=== PATIENT | male | born 1965 | race Caucasian/White ===

== ENCOUNTER 2023-09-05 11:10 | Inpatient (IN) | payer MEDICARE, MEDICAID ==
[~2023-09-05] VITALS: Ht 167.6 cm; Wt 106.2 kg
[~2023-09-05 11:10] MED LIST: NYST15OI14 TP; [UNRECOGNIZED DRUG - REMARK]
[2023-09-05] MEDS ORDERED: mag hydrox/Alum hydrox/simeth 30ml oral suspension PO PRN (16:40)
[2023-09-05] MEDS ORDERED: loperamide 2mg capsule PO PRN (16:40)
[2023-09-05] MEDS ORDERED: acetaminophen 325mg tablet PO PRN ×2 (16:40)
[2023-09-05] MEDS ORDERED: magnesium hydroxide 30ml (MOM) UD suspension PO PRN (16:40)
[2023-09-05] MEDS ORDERED: METO25TA6 PO (17:09)
[2023-09-05] MEDS ORDERED: OLAN20TA3 PO (17:09)
[2023-09-05] MEDS ORDERED: ALOG25TA PO (17:09)
[2023-09-05] MEDS ORDERED: GABA-530 PO (17:09)
[2023-09-05 17:39] VITALS: BP 125/82; PULSE 120; RESP 16; TEMP 99; O2SAT 96
[2023-09-05 19:00] VITALS: BP 118/88; PULSE 108; RESP 18; TEMP 97.8; O2SAT 97
[2023-09-05] MEDS: metoprolol tartrate 25mg tablet PO SCH (20:27)
[2023-09-05] MEDS: olanzapine 10mg tablet PO SCH (20:27)
[2023-09-05] MEDS: gabapentin 100mg capsule PO SCH (20:28)
[2023-09-06 07:00] VITALS: RESP 18; O2SAT 99
[2023-09-06 08:00] VITALS: BP 116/72; PULSE 118; RESP 18; TEMP 98; O2SAT 99
[2023-09-06] MEDS: olanzapine 10mg tablet PO SCH ×2 (08:02→20:18)
[2023-09-06] MEDS: metoprolol tartrate 25mg tablet PO SCH ×2 (08:02→20:18)
[2023-09-06] MEDS: linagliptin 5mg tablet PO SCH (08:03)
[2023-09-06] MEDS: nicotine 14mg patch - 24hr TD SCH (08:03)
[2023-09-06] MEDS: gabapentin 100mg capsule PO SCH ×3 (08:03→20:18)
[2023-09-06] MEDS: ketoconazole 2% cream 15gm TP SCH (08:03)
[2023-09-06 13:31] LABS: CHOL/HDL RATIO 3.8 (0.00-4.99); CHOLESTEROL 173 MG/DL (0-200); HDL CHOLESTEROL 45 MG/DL (35-60); HEMOGLOBIN A1C 6.8 % (4.5-6.2); LDL CHOLESTEROL 111 MG/DL (50-100); TRIGLYCERIDES 158 MG/DL (20-135)
[2023-09-06 19:25] VITALS: RESP 16; O2SAT 98
[2023-09-06 19:27] VITALS: BP 108/67; PULSE 73; RESP 16; TEMP 98.6; O2SAT 98
[2023-09-06] MEDS ORDERED: gabapentin 100mg capsule PO SCH ×2 (21:00)
[2023-09-07 07:00] VITALS: RESP 14; O2SAT 96
[2023-09-07] MEDS: olanzapine 10mg tablet PO SCH ×2 (07:49→20:06)
[2023-09-07] MEDS: gabapentin 100mg capsule PO SCH ×3 (07:49→20:06)
[2023-09-07] MEDS: linagliptin 5mg tablet PO SCH (07:49)
[2023-09-07] MEDS: metoprolol tartrate 25mg tablet PO SCH ×2 (07:49→20:06)
[2023-09-07] MEDS: atorvastatin 20mg tablet PO SCH (07:49)
[2023-09-07] MEDS: ketoconazole 2% cream 15gm TP SCH (07:50)
[2023-09-07] MEDS: nicotine 14mg patch - 24hr TD SCH (07:50)
[2023-09-07 08:00] VITALS: BP 118/77; PULSE 72; RESP 14; TEMP 98; O2SAT 96
[2023-09-07 19:00] VITALS: BP 122/72; PULSE 99; RESP 16; TEMP 97.3; O2SAT 100
[2023-09-08 07:00] VITALS: RESP 16; O2SAT 99
[2023-09-08] MEDS: nicotine 14mg patch - 24hr TD SCH (07:15)
[2023-09-08] MEDS: atorvastatin 20mg tablet PO SCH (07:15)
[2023-09-08] MEDS: linagliptin 5mg tablet PO SCH (07:15)
[2023-09-08] MEDS: gabapentin 100mg capsule PO SCH ×3 (07:15→20:12)
[2023-09-08] MEDS: olanzapine 10mg tablet PO SCH ×2 (07:15→20:12)
[2023-09-08] MEDS: ketoconazole 2% cream 15gm TP SCH (07:19)
[2023-09-08] MEDS: metoprolol tartrate 25mg tablet PO SCH ×2 (07:19→20:11)
[2023-09-08 07:57] VITALS: BP 112/78; PULSE 90; RESP 16; TEMP 98.4; O2SAT 99
[2023-09-08 19:29] VITALS: BP 120/70; PULSE 69; RESP 16; TEMP 97.9; O2SAT 100
[2023-09-08 19:47] VITALS: RESP 16; O2SAT 100
[2023-09-09 07:00] VITALS: RESP 16; O2SAT 100
[2023-09-09 08:00] VITALS: BP 111/48; PULSE 85; RESP 16; TEMP 98.7; O2SAT 100
[2023-09-09] MEDS: olanzapine 10mg tablet PO SCH ×2 (08:25→20:08)
[2023-09-09] MEDS: linagliptin 5mg tablet PO SCH (08:25)
[2023-09-09] MEDS: gabapentin 100mg capsule PO SCH ×3 (08:25→20:10)
[2023-09-09] MEDS: atorvastatin 20mg tablet PO SCH (08:25)
[2023-09-09] MEDS: metoprolol tartrate 25mg tablet PO SCH ×2 (08:26→20:09)
[2023-09-09] MEDS: ketoconazole 2% cream 15gm TP SCH (08:29)
[2023-09-09] MEDS: nicotine 14mg patch - 24hr TD SCH (08:29)
[2023-09-09 19:31] VITALS: BP 115/72; PULSE 106; RESP 16; TEMP 98.2; O2SAT 96
[2023-09-09 19:47] VITALS: RESP 16; O2SAT 100
[2023-09-10 07:00] VITALS: RESP 16; O2SAT 98
[2023-09-10] MEDS: linagliptin 5mg tablet PO SCH (08:23)
[2023-09-10] MEDS: atorvastatin 20mg tablet PO SCH (08:23)
[2023-09-10] MEDS: gabapentin 100mg capsule PO SCH ×3 (08:23→20:25)
[2023-09-10] MEDS: metoprolol tartrate 25mg tablet PO SCH ×2 (08:23→20:25)
[2023-09-10] MEDS: ketoconazole 2% cream 15gm TP SCH (08:24)
[2023-09-10] MEDS: nicotine 14mg patch - 24hr TD SCH (08:24)
[2023-09-10] MEDS: olanzapine 10mg tablet PO SCH (08:24)
[2023-09-10 08:30] VITALS: BP 126/78; PULSE 84; RESP 16; TEMP 98.2; O2SAT 98
[2023-09-10 19:30] VITALS: BP 112/70; PULSE 82; RESP 18; TEMP 98.1; O2SAT 97
[2023-09-11 07:00] VITALS: RESP 16; O2SAT 99
[2023-09-11 08:00] VITALS: BP 119/73; PULSE 81; RESP 16; TEMP 98.1; O2SAT 99
[2023-09-11] MEDS: aripiprazole 5mg tablet PO SCH (08:37)
[2023-09-11] MEDS: atorvastatin 20mg tablet PO SCH (08:37)
[2023-09-11] MEDS: gabapentin 100mg capsule PO SCH ×3 (08:38→20:15)
[2023-09-11] MEDS: metoprolol tartrate 25mg tablet PO SCH ×2 (08:38→20:16)
[2023-09-11] MEDS: OLANZAPINE 5 MG TABLET PO SCH ×2 (08:39→20:16)
[2023-09-11] MEDS: linagliptin 5mg tablet PO SCH (08:39)
[2023-09-11] MEDS: ketoconazole 2% cream 15gm TP SCH (08:40)
[2023-09-11] MEDS: nicotine 14mg patch - 24hr TD SCH (08:40)
[2023-09-11 19:00] VITALS: BP 147/89; PULSE 110; RESP 20; TEMP 97.8; O2SAT 96
[2023-09-12 07:00] VITALS: RESP 16; O2SAT 97
[2023-09-12] MEDS: linagliptin 5mg tablet PO SCH (07:37)
[2023-09-12] MEDS: atorvastatin 20mg tablet PO SCH (07:37)
[2023-09-12] MEDS: OLANZAPINE 5 MG TABLET PO SCH ×2 (07:37→20:09)
[2023-09-12] MEDS: aripiprazole 5mg tablet PO SCH (07:37)
[2023-09-12] MEDS: gabapentin 100mg capsule PO SCH ×3 (07:37→20:10)
[2023-09-12] MEDS: metoprolol tartrate 25mg tablet PO SCH ×2 (07:37→20:10)
[2023-09-12] MEDS: nicotine 14mg patch - 24hr TD SCH (07:38)
[2023-09-12 08:00] VITALS: BP 129/75; PULSE 93; RESP 16; TEMP 97.3; O2SAT 98
[2023-09-12] MEDS: ketoconazole 2% cream 15gm TP SCH (08:00)
[2023-09-12 19:00] VITALS: BP 147/81; PULSE 99; RESP 20; TEMP 97.5; O2SAT 97
[2023-09-13 07:00] VITALS: RESP 14; O2SAT 97
[2023-09-13] MEDS: nicotine 14mg patch - 24hr TD SCH (07:44)
[2023-09-13] MEDS: gabapentin 100mg capsule PO SCH ×3 (07:44→20:01)
[2023-09-13] MEDS: atorvastatin 20mg tablet PO SCH (07:44)
[2023-09-13] MEDS: aripiprazole 5mg tablet PO SCH (07:44)
[2023-09-13] MEDS: OLANZAPINE 5 MG TABLET PO SCH ×2 (07:44→20:01)
[2023-09-13] MEDS: linagliptin 5mg tablet PO SCH (07:44)
[2023-09-13] MEDS: metoprolol tartrate 25mg tablet PO SCH ×2 (07:45→20:01)
[2023-09-13 08:00] VITALS: BP 131/77; PULSE 83; RESP 14; TEMP 97.6; O2SAT 97
[2023-09-13] MEDS: ketoconazole 2% cream 15gm TP SCH (08:00)
[2023-09-13 19:00] VITALS: RESP 16; O2SAT 97
[2023-09-13 20:00] VITALS: BP 114/68; PULSE 94; RESP 16; TEMP 97.7; O2SAT 97
[2023-09-14 07:00] VITALS: RESP 16; O2SAT 98
[2023-09-14 08:02] VITALS: BP 120/75; PULSE 100; RESP 16; TEMP 97.4; O2SAT 98
[2023-09-14] MEDS: aripiprazole 5mg tablet PO SCH (08:02)
[2023-09-14] MEDS: olanzapine 10mg tablet PO SCH (08:03)
[2023-09-14] MEDS: metoprolol tartrate 25mg tablet PO SCH ×2 (08:03→20:00)
[2023-09-14] MEDS: linagliptin 5mg tablet PO SCH (08:03)
[2023-09-14] MEDS: gabapentin 100mg capsule PO SCH ×3 (08:03→20:47)
[2023-09-14] MEDS: atorvastatin 20mg tablet PO SCH (08:03)
[2023-09-14] MEDS: ketoconazole 2% cream 15gm TP SCH (08:06)
[2023-09-14] MEDS: nicotine 14mg patch - 24hr TD SCH (08:06)
[2023-09-14 19:00] VITALS: RESP 16; O2SAT 97
[2023-09-14 20:00] VITALS: BP 99/67; PULSE 99; RESP 16; TEMP 98.9; O2SAT 97
[2023-09-14] MEDS: OLANZAPINE 5 MG TABLET PO SCH (20:47)
[2023-09-15 07:00] VITALS: RESP 16; O2SAT 98
[2023-09-15] MEDS: linagliptin 5mg tablet PO SCH (07:24)
[2023-09-15] MEDS: olanzapine 10mg tablet PO SCH (07:25)
[2023-09-15] MEDS: aripiprazole 5mg tablet PO SCH (07:25)
[2023-09-15] MEDS: gabapentin 100mg capsule PO SCH ×3 (07:25→20:07)
[2023-09-15] MEDS: nicotine 14mg patch - 24hr TD SCH (07:25)
[2023-09-15] MEDS: atorvastatin 20mg tablet PO SCH (07:25)
[2023-09-15] MEDS: metoprolol tartrate 25mg tablet PO SCH ×2 (07:26→20:06)
[2023-09-15] MEDS: ketoconazole 2% cream 15gm TP SCH (07:27)
[2023-09-15 08:00] VITALS: BP 112/83; PULSE 100; RESP 16; TEMP 98.2; O2SAT 98
[2023-09-15 19:46] VITALS: RESP 16; O2SAT 96
[2023-09-15 19:48] VITALS: BP 106/70; PULSE 96; RESP 16; TEMP 98.1; O2SAT 96
[2023-09-15] MEDS: OLANZAPINE 5 MG TABLET PO SCH (20:05)
[2023-09-16 07:00] VITALS: RESP 16; O2SAT 97
[2023-09-16 08:00] VITALS: BP 112/74; PULSE 86; RESP 16; TEMP 97.5; O2SAT 97
[2023-09-16] MEDS: linagliptin 5mg tablet PO SCH (08:39)
[2023-09-16] MEDS: aripiprazole 5mg tablet PO SCH (08:39)
[2023-09-16] MEDS: olanzapine 10mg tablet PO SCH (08:39)
[2023-09-16] MEDS: nicotine 14mg patch - 24hr TD SCH (08:39)
[2023-09-16] MEDS: atorvastatin 20mg tablet PO SCH (08:39)
[2023-09-16] MEDS: metoprolol tartrate 25mg tablet PO SCH ×2 (08:40→21:09)
[2023-09-16] MEDS: ketoconazole 2% cream 15gm TP SCH (08:40)
[2023-09-16] MEDS: gabapentin 100mg capsule PO SCH ×3 (08:40→21:09)
[2023-09-16 20:00] VITALS: BP 113/74; PULSE 93; RESP 16; TEMP 98.6; O2SAT 97
[2023-09-16] MEDS: OLANZAPINE 5 MG TABLET PO SCH (21:09)
[2023-09-17] MEDS: atorvastatin 20mg tablet PO SCH (07:54)
[2023-09-17] MEDS: aripiprazole 5mg tablet PO SCH (07:54)
[2023-09-17] MEDS: linagliptin 5mg tablet PO SCH (07:55)
[2023-09-17] MEDS: gabapentin 100mg capsule PO SCH ×3 (07:55→20:22)
[2023-09-17] MEDS: olanzapine 10mg tablet PO SCH (07:55)
[2023-09-17] MEDS: metoprolol tartrate 25mg tablet PO SCH ×2 (07:55→20:22)
[2023-09-17] MEDS: nicotine 14mg patch - 24hr TD SCH (07:55)
[2023-09-17 08:00] VITALS: BP 111/73; PULSE 89; RESP 14; TEMP 97.6; O2SAT 98
[2023-09-17] MEDS: ketoconazole 2% cream 15gm TP SCH (08:30)
[2023-09-17 19:32] VITALS: BP 104/74; PULSE 96; RESP 16; TEMP 97.6; O2SAT 100
[2023-09-17] MEDS: OLANZAPINE 5 MG TABLET PO SCH (20:23)
[2023-09-18] MEDS: gabapentin 100mg capsule PO SCH ×3 (07:53→20:21)
[2023-09-18] MEDS: linagliptin 5mg tablet PO SCH (07:53)
[2023-09-18] MEDS: metoprolol tartrate 25mg tablet PO SCH ×2 (07:54→20:22)
[2023-09-18] MEDS: aripiprazole 5mg tablet PO SCH (07:54)
[2023-09-18] MEDS: olanzapine 10mg tablet PO SCH (07:55)
[2023-09-18] MEDS: atorvastatin 20mg tablet PO SCH (07:55)
[2023-09-18] MEDS: nicotine 14mg patch - 24hr TD SCH (07:55)
[2023-09-18 08:00] VITALS: BP 125/71; PULSE 95; RESP 18; TEMP 97; O2SAT 100
[2023-09-18] MEDS: ketoconazole 2% cream 15gm TP SCH (08:00)
[2023-09-18 19:30] VITALS: BP 134/83; PULSE 104; RESP 14; TEMP 97.4; O2SAT 99
[2023-09-18] MEDS: OLANZAPINE 5 MG TABLET PO SCH (20:22)
[2023-09-19] MEDS: nicotine 14mg patch - 24hr TD SCH (07:06)
[2023-09-19 08:00] VITALS: BP 141/78; PULSE 82; RESP 14; TEMP 97.9; O2SAT 98
[2023-09-19] MEDS: ketoconazole 2% cream 15gm TP SCH (08:00)
[2023-09-19] MEDS: aripiprazole 5mg tablet PO SCH (08:04)
[2023-09-19] MEDS: olanzapine 10mg tablet PO SCH (08:04)
[2023-09-19] MEDS: linagliptin 5mg tablet PO SCH (08:04)
[2023-09-19] MEDS: atorvastatin 20mg tablet PO SCH (08:04)
[2023-09-19] MEDS: metoprolol tartrate 25mg tablet PO SCH ×2 (08:05→20:14)
[2023-09-19] MEDS: gabapentin 100mg capsule PO SCH ×3 (08:05→20:14)
[2023-09-19 19:00] VITALS: BP 122/72; PULSE 91; RESP 17; TEMP 97.3; O2SAT 98
[2023-09-19] MEDS: OLANZAPINE 5 MG TABLET PO SCH (20:15)
[2023-09-20 07:00] VITALS: RESP 16; O2SAT 98
[2023-09-20 08:00] VITALS: BP 124/71; PULSE 90; RESP 16; TEMP 98.2; O2SAT 98
[2023-09-20] MEDS: gabapentin 100mg capsule PO SCH ×3 (08:00→20:11)
[2023-09-20] MEDS: atorvastatin 20mg tablet PO SCH (08:00)
[2023-09-20] MEDS: metoprolol tartrate 25mg tablet PO SCH ×2 (08:00→20:12)
[2023-09-20] MEDS: aripiprazole 5mg tablet PO SCH (08:00)
[2023-09-20] MEDS: ketoconazole 2% cream 15gm TP SCH (08:01)
[2023-09-20] MEDS: olanzapine 10mg tablet PO SCH (08:01)
[2023-09-20] MEDS: linagliptin 5mg tablet PO SCH (08:01)
[2023-09-20] MEDS: nicotine 14mg patch - 24hr TD SCH (08:04)
[2023-09-20 19:00] VITALS: RESP 17; O2SAT 97
[2023-09-20 19:10] VITALS: BP 123/76; PULSE 82; RESP 17; TEMP 96.7; O2SAT 97
[2023-09-20] MEDS: OLANZAPINE 5 MG TABLET PO SCH (20:11)
[2023-09-21 07:00] VITALS: RESP 14; O2SAT 96
[2023-09-21 08:00] VITALS: BP 105/66; PULSE 78; RESP 14; TEMP 97.7; O2SAT 96
[2023-09-21] MEDS: gabapentin 100mg capsule PO SCH ×3 (08:00→20:39)
[2023-09-21] MEDS: aripiprazole 5mg tablet PO SCH (08:00)
[2023-09-21] MEDS: nicotine 14mg patch - 24hr TD SCH (08:00)
[2023-09-21] MEDS: olanzapine 10mg tablet PO SCH (08:01)
[2023-09-21] MEDS: atorvastatin 20mg tablet PO SCH (08:01)
[2023-09-21] MEDS: linagliptin 5mg tablet PO SCH (08:01)
[2023-09-21] MEDS: metoprolol tartrate 25mg tablet PO SCH ×2 (08:02→20:39)
[2023-09-21] MEDS: ketoconazole 2% cream 15gm TP SCH (08:10)
[2023-09-21 19:44] VITALS: BP 111/76; PULSE 95; RESP 16; TEMP 97.3; O2SAT 97
[2023-09-21] MEDS: traZODone 50mg tablet PO PRN (20:39)
[2023-09-21] MEDS: OLANZAPINE 5 MG TABLET PO SCH (20:39)
[2023-09-22 07:00] VITALS: RESP 14; O2SAT 98
[2023-09-22] MEDS: aripiprazole 5mg tablet PO SCH (07:25)
[2023-09-22] MEDS: olanzapine 10mg tablet PO SCH (07:25)
[2023-09-22] MEDS: atorvastatin 20mg tablet PO SCH (07:25)
[2023-09-22] MEDS: metoprolol tartrate 25mg tablet PO SCH ×2 (07:25→20:21)
[2023-09-22] MEDS: gabapentin 100mg capsule PO SCH ×3 (07:25→20:21)
[2023-09-22] MEDS: linagliptin 5mg tablet PO SCH (07:25)
[2023-09-22] MEDS: nicotine 14mg patch - 24hr TD SCH (07:26)
[2023-09-22] MEDS: ketoconazole 2% cream 15gm TP SCH (07:26)
[2023-09-22 08:00] VITALS: BP 122/72; PULSE 80; RESP 14; TEMP 98.1; O2SAT 98
[2023-09-22 20:00] VITALS: BP 128/81; PULSE 97; RESP 15; TEMP 98.5; O2SAT 96
[2023-09-22] MEDS: OLANZAPINE 5 MG TABLET PO SCH (20:20)
[2023-09-23 07:00] VITALS: RESP 16; O2SAT 96
[2023-09-23] MEDS: atorvastatin 20mg tablet PO SCH (07:16)
[2023-09-23] MEDS: olanzapine 10mg tablet PO SCH (07:16)
[2023-09-23] MEDS: aripiprazole 5mg tablet PO SCH (07:16)
[2023-09-23] MEDS: linagliptin 5mg tablet PO SCH (07:17)
[2023-09-23] MEDS: metoprolol tartrate 25mg tablet PO SCH ×2 (07:17→20:28)
[2023-09-23] MEDS: gabapentin 100mg capsule PO SCH ×3 (07:17→20:27)
[2023-09-23] MEDS: ketoconazole 2% cream 15gm TP SCH (07:18)
[2023-09-23] MEDS: nicotine 14mg patch - 24hr TD SCH (07:35)
[2023-09-23 08:00] VITALS: BP 117/76; PULSE 60; RESP 16; TEMP 97; O2SAT 96
[2023-09-23] MEDS: LORazepam 1 MG tablet PO PRN (15:32)
[2023-09-23 19:53] VITALS: BP 132/74; PULSE 93; RESP 16; TEMP 97.7; O2SAT 96
[2023-09-23] MEDS: OLANZAPINE 5 MG TABLET PO SCH (20:27)
[2023-09-24 07:05] VITALS: RESP 16; O2SAT 96
[2023-09-24] MEDS: olanzapine 10mg tablet PO SCH (07:43)
[2023-09-24] MEDS: atorvastatin 20mg tablet PO SCH (07:43)
[2023-09-24] MEDS: aripiprazole 5mg tablet PO SCH (07:43)
[2023-09-24] MEDS: linagliptin 5mg tablet PO SCH (07:43)
[2023-09-24] MEDS: gabapentin 100mg capsule PO SCH ×3 (07:43→20:30)
[2023-09-24] MEDS: nicotine 14mg patch - 24hr TD SCH (07:44)
[2023-09-24] MEDS: metoprolol tartrate 25mg tablet PO SCH ×2 (07:44→20:30)
[2023-09-24 08:54] VITALS: BP 115/76; PULSE 75; RESP 12; TEMP 96.8; O2SAT 97
[2023-09-24] MEDS: ketoconazole 2% cream 15gm TP SCH (09:00)
[2023-09-24 19:30] VITALS: BP 114/66; PULSE 81; RESP 16; TEMP 98.3
[2023-09-24] MEDS: OLANZAPINE 5 MG TABLET PO SCH (20:31)
[2023-09-25 07:23] VITALS: RESP 16; O2SAT 96
[2023-09-25] MEDS: aripiprazole 5mg tablet PO SCH (07:41)
[2023-09-25] MEDS: linagliptin 5mg tablet PO SCH (07:41)
[2023-09-25] MEDS: atorvastatin 20mg tablet PO SCH (07:41)
[2023-09-25] MEDS: metoprolol tartrate 25mg tablet PO SCH ×2 (07:41→20:04)
[2023-09-25] MEDS: olanzapine 10mg tablet PO SCH (07:41)
[2023-09-25] MEDS: nicotine 14mg patch - 24hr TD SCH (07:42)
[2023-09-25] MEDS: ketoconazole 2% cream 15gm TP SCH (07:42)
[2023-09-25] MEDS: gabapentin 100mg capsule PO SCH ×3 (07:42→20:04)
[2023-09-25 08:00] VITALS: BP 131/78; PULSE 84; RESP 16; TEMP 98.4; O2SAT 98
[2023-09-25 19:09] VITALS: BP 110/78; PULSE 88; RESP 16; TEMP 97; O2SAT 94
[2023-09-25 19:39] VITALS: RESP 16; O2SAT 98
[2023-09-25] MEDS: OLANZAPINE 5 MG TABLET PO SCH (20:04)
[2023-09-26 07:26] VITALS: BP 129/77; PULSE 101; RESP 16; TEMP 98.6; O2SAT 99
[2023-09-26] MEDS: nicotine 14mg patch - 24hr TD SCH (08:00)
[2023-09-26] MEDS: gabapentin 100mg capsule PO SCH ×3 (08:05→20:39)
[2023-09-26] MEDS: linagliptin 5mg tablet PO SCH (08:05)
[2023-09-26] MEDS: atorvastatin 20mg tablet PO SCH (08:05)
[2023-09-26] MEDS: metoprolol tartrate 25mg tablet PO SCH ×2 (08:06→20:38)
[2023-09-26] MEDS: olanzapine 10mg tablet PO SCH (08:06)
[2023-09-26] MEDS: aripiprazole 5mg tablet PO SCH (08:06)
[2023-09-26] MEDS: ketoconazole 2% cream 15gm TP SCH (08:49)
[2023-09-26 19:19] VITALS: BP 99/72; PULSE 82; RESP 18; TEMP 97.9; O2SAT 97
[2023-09-26 20:37] VITALS: BP 126/70
[2023-09-26] MEDS: OLANZAPINE 5 MG TABLET PO SCH (20:39)
[2023-09-26] MEDS: traZODone 50mg tablet PO PRN (20:39)
[2023-09-27 07:00] VITALS: RESP 14; O2SAT 97
[2023-09-27 08:00] VITALS: BP 111/70; PULSE 79; RESP 14; TEMP 97.3; O2SAT 97
[2023-09-27] MEDS: nicotine 14mg patch - 24hr TD SCH (08:00)
[2023-09-27] MEDS: gabapentin 100mg capsule PO SCH ×3 (08:01→20:05)
[2023-09-27] MEDS: ketoconazole 2% cream 15gm TP SCH (08:01)
[2023-09-27] MEDS: olanzapine 10mg tablet PO SCH (08:01)
[2023-09-27] MEDS: metoprolol tartrate 25mg tablet PO SCH ×2 (08:01→20:06)
[2023-09-27] MEDS: atorvastatin 20mg tablet PO SCH (08:01)
[2023-09-27] MEDS: linagliptin 5mg tablet PO SCH (08:01)
[2023-09-27] MEDS: aripiprazole 5mg tablet PO SCH (08:02)
[2023-09-27 19:00] VITALS: RESP 18; O2SAT 95
[2023-09-27] MEDS: OLANZAPINE 5 MG TABLET PO SCH (20:05)
[2023-09-27 20:20] VITALS: BP 112/67; PULSE 84; RESP 18; TEMP 97.1; O2SAT 95
[2023-09-28 07:00] VITALS: RESP 18; O2SAT 97
[2023-09-28] MEDS: linagliptin 5mg tablet PO SCH (07:32)
[2023-09-28] MEDS: gabapentin 100mg capsule PO SCH ×3 (07:32→20:09)
[2023-09-28] MEDS: olanzapine 10mg tablet PO SCH (07:32)
[2023-09-28] MEDS: aripiprazole 5mg tablet PO SCH (07:33)
[2023-09-28] MEDS: atorvastatin 20mg tablet PO SCH (07:33)
[2023-09-28] MEDS: metoprolol tartrate 25mg tablet PO SCH ×2 (07:36→20:09)
[2023-09-28] MEDS: nicotine 14mg patch - 24hr TD SCH (07:47)
[2023-09-28 08:00] VITALS: BP 104/74; PULSE 100; RESP 18; TEMP 97.4; O2SAT 97
[2023-09-28] MEDS: ketoconazole 2% cream 15gm TP SCH ×2 (08:00→14:41)
[2023-09-28 19:00] VITALS: RESP 16; O2SAT 94
[2023-09-28 20:00] VITALS: BP 134/75; PULSE 88; RESP 16; TEMP 98.5; O2SAT 96
[2023-09-28] MEDS: OLANZAPINE 5 MG TABLET PO SCH (20:10)
[2023-09-29] MEDS: LORazepam 1 MG tablet PO PRN (00:09)
[2023-09-29 07:00] VITALS: RESP 14; O2SAT 96
[2023-09-29 08:00] VITALS: BP 114/70; PULSE 86; RESP 14; TEMP 98.8; O2SAT 96
[2023-09-29] MEDS: olanzapine 10mg tablet PO SCH ×2 (08:00→08:13)
[2023-09-29] MEDS: atorvastatin 20mg tablet PO SCH (08:13)
[2023-09-29] MEDS: aripiprazole 5mg tablet PO SCH (08:13)
[2023-09-29] MEDS: linagliptin 5mg tablet PO SCH (08:13)
[2023-09-29] MEDS: metoprolol tartrate 25mg tablet PO SCH ×2 (08:14→20:17)
[2023-09-29] MEDS: gabapentin 100mg capsule PO SCH ×3 (08:14→20:15)
[2023-09-29] MEDS: nicotine 14mg patch - 24hr TD SCH ×4 (08:15→09:12)
[2023-09-29] MEDS: ketoconazole 2% cream 15gm TP SCH (08:15)
[2023-09-29 19:00] VITALS: RESP 16; O2SAT 96
[2023-09-29 20:00] VITALS: BP 115/69; PULSE 82; RESP 16; TEMP 97.9; O2SAT 96
[2023-09-29] MEDS: OLANZAPINE 5 MG TABLET PO SCH (20:19)
[2023-09-30 07:00] VITALS: RESP 14; O2SAT 97
[2023-09-30 08:00] VITALS: BP 118/73; PULSE 78; RESP 14; TEMP 98.1; O2SAT 97
[2023-09-30] MEDS: olanzapine 10mg tablet PO SCH ×2 (08:00→08:06)
[2023-09-30] MEDS: aripiprazole 5mg tablet PO SCH (08:05)
[2023-09-30] MEDS: atorvastatin 20mg tablet PO SCH (08:06)
[2023-09-30] MEDS: linagliptin 5mg tablet PO SCH (08:06)
[2023-09-30] MEDS: metoprolol tartrate 25mg tablet PO SCH ×2 (08:06→20:05)
[2023-09-30] MEDS: gabapentin 100mg capsule PO SCH ×3 (08:06→20:05)
[2023-09-30] MEDS: ketoconazole 2% cream 15gm TP SCH (08:06)
[2023-09-30 20:00] VITALS: BP 112/69; PULSE 86; RESP 16; TEMP 97.9; O2SAT 97
[2023-09-30] MEDS: OLANZAPINE 5 MG TABLET PO SCH (20:06)
[2023-09-30] MEDS: traZODone 50mg tablet PO PRN (20:06)
[2023-10-01 07:00] VITALS: RESP 16
[2023-10-01] MEDS: atorvastatin 20mg tablet PO SCH (07:54)
[2023-10-01] MEDS: gabapentin 100mg capsule PO SCH ×3 (07:54→20:43)
[2023-10-01] MEDS: aripiprazole 5mg tablet PO SCH ×2 (07:54→20:44)
[2023-10-01] MEDS: metoprolol tartrate 25mg tablet PO SCH ×2 (07:55→20:44)
[2023-10-01 08:00] VITALS: BP 115/69; PULSE 69; RESP 16; TEMP 98.3; O2SAT 94
[2023-10-01] MEDS: olanzapine 10mg tablet PO SCH (08:00)
[2023-10-01] MEDS: linagliptin 5mg tablet PO SCH (08:01)
[2023-10-01] MEDS: ketoconazole 2% cream 15gm TP SCH (09:23)
[2023-10-01 19:00] VITALS: RESP 14
[2023-10-01 20:00] VITALS: BP 110/68; PULSE 87; RESP 15; TEMP 97.7; O2SAT 96
[2023-10-01] MEDS: traZODone 50mg tablet PO PRN (20:43)
[2023-10-01] MEDS: OLANZAPINE 5 MG TABLET PO SCH (20:48)
[2023-10-02 07:00] VITALS: RESP 12; O2SAT 95
[2023-10-02 08:00] VITALS: BP 118/64; PULSE 80; RESP 12; TEMP 97.2; O2SAT 95
[2023-10-02] MEDS: olanzapine 10mg tablet PO SCH (08:00)
[2023-10-02] MEDS: atorvastatin 20mg tablet PO SCH (08:35)
[2023-10-02] MEDS: metoprolol tartrate 25mg tablet PO SCH ×2 (08:35→20:09)
[2023-10-02] MEDS: aripiprazole 5mg tablet PO SCH ×2 (08:35→20:10)
[2023-10-02] MEDS: gabapentin 100mg capsule PO SCH ×3 (08:35→20:06)
[2023-10-02] MEDS: ketoconazole 2% cream 15gm TP SCH (08:36)
[2023-10-02] MEDS: linagliptin 5mg tablet PO SCH (08:36)
[2023-10-02 19:26] VITALS: BP 123/72; PULSE 82; RESP 16; TEMP 98.1; O2SAT 96
[2023-10-02] MEDS: traZODone 50mg tablet PO PRN (20:10)
[2023-10-02] MEDS: OLANZAPINE 5 MG TABLET PO SCH (21:00)
[2023-10-03 07:00] VITALS: RESP 16; O2SAT 97
[2023-10-03] MEDS: olanzapine 10mg tablet PO SCH (08:00)
[2023-10-03 08:25] VITALS: BP 115/77; PULSE 85; RESP 16; TEMP 97.7; O2SAT 97
[2023-10-03] MEDS: atorvastatin 20mg tablet PO SCH (08:26)
[2023-10-03] MEDS: aripiprazole 5mg tablet PO SCH ×2 (08:26→20:24)
[2023-10-03] MEDS: linagliptin 5mg tablet PO SCH (08:27)
[2023-10-03] MEDS: metoprolol tartrate 25mg tablet PO SCH ×2 (08:27→20:25)
[2023-10-03] MEDS: gabapentin 100mg capsule PO SCH ×3 (08:27→20:24)
[2023-10-03 19:30] VITALS: BP 118/73; PULSE 86; RESP 18; TEMP 98.6; O2SAT 97
[2023-10-03] MEDS: OLANZAPINE 5 MG TABLET PO SCH (20:21)
[2023-10-04 07:00] VITALS: RESP 16; O2SAT 97
[2023-10-04 08:00] VITALS: BP 115/74; PULSE 78; RESP 16; TEMP 98.6; O2SAT 97
[2023-10-04] MEDS: olanzapine 10mg tablet PO SCH (08:00)
[2023-10-04] MEDS: gabapentin 100mg capsule PO SCH ×3 (08:58→20:12)
[2023-10-04] MEDS: linagliptin 5mg tablet PO SCH (08:58)
[2023-10-04] MEDS: atorvastatin 20mg tablet PO SCH (08:58)
[2023-10-04] MEDS: aripiprazole 5mg tablet PO SCH ×2 (08:58→20:10)
[2023-10-04] MEDS: metoprolol tartrate 25mg tablet PO SCH ×2 (08:59→20:12)
[2023-10-04 19:29] VITALS: BP 112/73; PULSE 85; RESP 16; TEMP 97.9; O2SAT 96
[2023-10-04] MEDS: OLANZAPINE 5 MG TABLET PO SCH (20:14)
[2023-10-05 07:00] VITALS: RESP 14; O2SAT 96
[2023-10-05 08:00] VITALS: BP 113/68; PULSE 79; RESP 14; TEMP 98; O2SAT 96
[2023-10-05] MEDS: aripiprazole 5mg tablet PO SCH ×2 (08:02→20:10)
[2023-10-05] MEDS: gabapentin 100mg capsule PO SCH ×3 (08:02→20:10)
[2023-10-05] MEDS: linagliptin 5mg tablet PO SCH (08:02)
[2023-10-05] MEDS: metoprolol tartrate 25mg tablet PO SCH ×2 (08:03→20:11)
[2023-10-05] MEDS: atorvastatin 20mg tablet PO SCH (08:03)
[2023-10-05 19:20] VITALS: BP 124/76; PULSE 88; RESP 16; TEMP 98; O2SAT 97
[2023-10-05] MEDS: traZODone 50mg tablet PO PRN (20:10)
[2023-10-05] MEDS: OLANZAPINE 5 MG TABLET PO SCH (20:10)
[2023-10-06] MEDS: LORazepam 1 MG tablet PO PRN ×2 (01:11→20:16)
[2023-10-06 07:00] VITALS: RESP 16; O2SAT 99
[2023-10-06] MEDS: atorvastatin 20mg tablet PO SCH (07:20)
[2023-10-06] MEDS: linagliptin 5mg tablet PO SCH (07:20)
[2023-10-06] MEDS: aripiprazole 5mg tablet PO SCH ×2 (07:20→20:17)
[2023-10-06] MEDS: gabapentin 100mg capsule PO SCH ×3 (07:20→20:16)
[2023-10-06 08:00] VITALS: BP 98/65; PULSE 85; RESP 16; TEMP 98.4; O2SAT 99
[2023-10-06 08:37] VITALS: BP 120/69; PULSE 83
[2023-10-06] MEDS: metoprolol tartrate 25mg tablet PO SCH ×2 (08:38→20:16)
[2023-10-06 19:05] VITALS: BP 113/71; PULSE 88; RESP 16; TEMP 97.8; O2SAT 97
[2023-10-06] MEDS: OLANZAPINE 5 MG TABLET PO SCH (20:17)
[2023-10-07] MEDS ORDERED: temazepam 15mg capsule PO PRN (01:00)
[2023-10-07] MEDS: LORazepam 1 MG tablet PO PRN (03:23)
[2023-10-07 07:00] VITALS: RESP 12; O2SAT 97
[2023-10-07 08:00] VITALS: BP 108/72; PULSE 77; RESP 12; TEMP 97.2; O2SAT 97
[2023-10-07] MEDS: aripiprazole 5mg tablet PO SCH ×2 (08:59→20:41)
[2023-10-07] MEDS: atorvastatin 20mg tablet PO SCH (08:59)
[2023-10-07] MEDS: gabapentin 100mg capsule PO SCH ×3 (08:59→20:40)
[2023-10-07] MEDS: linagliptin 5mg tablet PO SCH (09:00)
[2023-10-07] MEDS: metoprolol tartrate 25mg tablet PO SCH ×2 (09:00→20:41)
[2023-10-07 20:00] VITALS: BP 118/73; PULSE 87; RESP 16; TEMP 97.6; O2SAT 95
[2023-10-07] MEDS: traZODone 50mg tablet PO PRN (20:41)
[2023-10-07] MEDS: OLANZAPINE 5 MG TABLET PO SCH (20:41)
[2023-10-08] MEDS: LORazepam 1 MG tablet PO PRN (00:24)
[2023-10-08 07:00] VITALS: RESP 16; O2SAT 98
[2023-10-08 08:00] VITALS: BP 117/75; PULSE 78; RESP 16; TEMP 97.8; O2SAT 98
[2023-10-08] MEDS: aripiprazole 5mg tablet PO SCH ×2 (08:30→20:56)
[2023-10-08] MEDS: atorvastatin 20mg tablet PO SCH (08:30)
[2023-10-08] MEDS: metoprolol tartrate 25mg tablet PO SCH ×2 (08:31→20:57)
[2023-10-08] MEDS: gabapentin 100mg capsule PO SCH ×3 (08:31→20:56)
[2023-10-08] MEDS: linagliptin 5mg tablet PO SCH (08:31)
[2023-10-08 19:00] VITALS: RESP 15; O2SAT 96
[2023-10-08 20:00] VITALS: BP 116/71; PULSE 83; RESP 15; TEMP 97.8; O2SAT 96
[2023-10-08] MEDS: traZODone 50mg tablet PO PRN (20:57)
[2023-10-09 07:00] VITALS: RESP 16; O2SAT 97
[2023-10-09 07:27] VITALS: BP 109/73; PULSE 73; RESP 16; TEMP 97.1; O2SAT 97
[2023-10-09] MEDS: aripiprazole 5mg tablet PO SCH ×2 (08:56→20:05)
[2023-10-09] MEDS: atorvastatin 20mg tablet PO SCH (08:56)
[2023-10-09] MEDS: gabapentin 100mg capsule PO SCH ×3 (08:57→20:05)
[2023-10-09] MEDS: metoprolol tartrate 25mg tablet PO SCH ×2 (08:57→20:05)
[2023-10-09] MEDS: linagliptin 5mg tablet PO SCH (08:57)
[2023-10-09 19:00] VITALS: RESP 15; O2SAT 98
[2023-10-09 20:00] VITALS: BP 120/75; PULSE 92; RESP 15; TEMP 97.8; O2SAT 98
[2023-10-10 07:00] VITALS: BP 123/75; PULSE 87; RESP 16; TEMP 98.2; O2SAT 97
[2023-10-10 07:14] VITALS: RESP 16; O2SAT 97
[2023-10-10] MEDS: gabapentin 100mg capsule PO SCH ×3 (07:53→20:39)
[2023-10-10] MEDS: aripiprazole 5mg tablet PO SCH ×2 (07:53→20:39)
[2023-10-10] MEDS: linagliptin 5mg tablet PO SCH (07:53)
[2023-10-10] MEDS: atorvastatin 20mg tablet PO SCH (07:54)
[2023-10-10] MEDS: metoprolol tartrate 25mg tablet PO SCH ×2 (07:54→20:39)
[2023-10-10 19:00] VITALS: RESP 18; O2SAT 100
[2023-10-10 20:00] VITALS: BP 117/75; PULSE 97; RESP 18; TEMP 97.5; O2SAT 100
[2023-10-10] MEDS: LORazepam 1 MG tablet PO PRN (20:40)
[2023-10-11 07:00] VITALS: RESP 16; O2SAT 97
[2023-10-11] MEDS: atorvastatin 20mg tablet PO SCH (07:42)
[2023-10-11] MEDS: linagliptin 5mg tablet PO SCH (07:42)
[2023-10-11] MEDS: metoprolol tartrate 25mg tablet PO SCH ×2 (07:42→21:25)
[2023-10-11] MEDS: aripiprazole 5mg tablet PO SCH ×2 (07:42→21:24)
[2023-10-11] MEDS: gabapentin 100mg capsule PO SCH ×3 (07:42→21:24)
[2023-10-11 08:00] VITALS: BP 116/75; PULSE 85; RESP 16; TEMP 97.6; O2SAT 97
[2023-10-11 19:00] VITALS: RESP 18; O2SAT 100
[2023-10-11 20:00] VITALS: BP 121/83; PULSE 83; RESP 18; TEMP 97.3; O2SAT 100
[2023-10-12 07:00] VITALS: RESP 18; O2SAT 97
[2023-10-12 08:00] VITALS: BP 115/74; PULSE 96; RESP 18; TEMP 98.8; O2SAT 97
[2023-10-12] MEDS: aripiprazole 5mg tablet PO SCH ×2 (08:17→20:12)
[2023-10-12] MEDS: metoprolol tartrate 25mg tablet PO SCH ×2 (08:17→20:13)
[2023-10-12] MEDS: gabapentin 100mg capsule PO SCH ×3 (08:17→20:13)
[2023-10-12] MEDS: linagliptin 5mg tablet PO SCH (08:17)
[2023-10-12] MEDS: atorvastatin 20mg tablet PO SCH (08:17)
[2023-10-12 19:30] VITALS: BP 127/79; PULSE 82; RESP 18; TEMP 98.7; O2SAT 99
[2023-10-13] MEDS: metoprolol tartrate 25mg tablet PO SCH ×2 (07:15→20:27)
[2023-10-13] MEDS: gabapentin 100mg capsule PO SCH ×3 (07:15→20:28)
[2023-10-13] MEDS: aripiprazole 5mg tablet PO SCH ×2 (07:15→20:27)
[2023-10-13] MEDS: atorvastatin 20mg tablet PO SCH (07:16)
[2023-10-13] MEDS: linagliptin 5mg tablet PO SCH (07:16)
[2023-10-13 07:30] VITALS: BP 106/69; PULSE 82; RESP 16; TEMP 98.2; O2SAT 97
[2023-10-13 19:12] VITALS: BP 132/73; PULSE 77; RESP 18; TEMP 97.7; O2SAT 96
[2023-10-14 07:30] VITALS: BP 115/73; PULSE 87; RESP 12; TEMP 97.4; O2SAT 97
[2023-10-14] MEDS: metoprolol tartrate 25mg tablet PO SCH ×2 (07:52→21:05)
[2023-10-14] MEDS: atorvastatin 20mg tablet PO SCH (07:52)
[2023-10-14] MEDS: gabapentin 100mg capsule PO SCH ×3 (07:52→21:05)
[2023-10-14] MEDS: linagliptin 5mg tablet PO SCH (07:52)
[2023-10-14] MEDS: aripiprazole 5mg tablet PO SCH ×2 (07:52→21:05)
[2023-10-14 19:59] VITALS: BP 127/75; PULSE 100; RESP 17; TEMP 98.1; O2SAT 96
[2023-10-14] MEDS: traZODone 50mg tablet PO PRN (21:05)
[2023-10-15 07:00] VITALS: RESP 12; O2SAT 97
[2023-10-15 08:00] VITALS: BP 121/71; PULSE 72; RESP 16; TEMP 97.9; O2SAT 98
[2023-10-15] MEDS: atorvastatin 20mg tablet PO SCH (08:20)
[2023-10-15] MEDS: metoprolol tartrate 25mg tablet PO SCH ×2 (08:20→20:14)
[2023-10-15] MEDS: linagliptin 5mg tablet PO SCH (08:20)
[2023-10-15] MEDS: aripiprazole 5mg tablet PO SCH ×2 (08:20→20:13)
[2023-10-15] MEDS: gabapentin 100mg capsule PO SCH ×3 (08:21→20:13)
[2023-10-15 19:00] VITALS: RESP 20; O2SAT 97
[2023-10-15 20:00] VITALS: BP 116/70; PULSE 78; RESP 17; TEMP 97.5; O2SAT 96
[2023-10-15] MEDS: LORazepam 1 MG tablet PO PRN (23:07)
[2023-10-16] MEDS: LORazepam 1 MG tablet PO PRN ×3 (02:56→23:10)
[2023-10-16 07:00] VITALS: RESP 12; O2SAT 97
[2023-10-16] MEDS: linagliptin 5mg tablet PO SCH (07:40)
[2023-10-16] MEDS: aripiprazole 5mg tablet PO SCH ×2 (07:40→20:48)
[2023-10-16] MEDS: gabapentin 100mg capsule PO SCH ×3 (07:40→20:48)
[2023-10-16] MEDS: atorvastatin 20mg tablet PO SCH (07:41)
[2023-10-16] MEDS: metoprolol tartrate 25mg tablet PO SCH ×2 (07:41→20:49)
[2023-10-16 08:00] VITALS: BP 119/77; PULSE 80; RESP 18; TEMP 97.4; O2SAT 97
[2023-10-16 19:00] VITALS: RESP 14; O2SAT 96
[2023-10-16 19:36] VITALS: BP 122/72; PULSE 81; RESP 14; TEMP 97.8; O2SAT 96
[2023-10-17] MEDS: LORazepam 1 MG tablet PO PRN ×2 (03:03→19:46)
[2023-10-17 07:17] VITALS: RESP 12; O2SAT 97
[2023-10-17] MEDS: gabapentin 100mg capsule PO SCH ×3 (07:43→21:22)
[2023-10-17] MEDS: metoprolol tartrate 25mg tablet PO SCH ×2 (07:43→19:46)
[2023-10-17] MEDS: atorvastatin 20mg tablet PO SCH (07:43)
[2023-10-17] MEDS: aripiprazole 5mg tablet PO SCH ×2 (07:43→19:46)
[2023-10-17] MEDS: linagliptin 5mg tablet PO SCH (07:44)
[2023-10-17 08:00] VITALS: BP 119/77; PULSE 80; RESP 18; TEMP 97.4; O2SAT 97
[2023-10-17 09:05] VITALS: BP 125/79; PULSE 81; RESP 14; TEMP 98; O2SAT 100
[2023-10-17 19:00] VITALS: RESP 18; O2SAT 95
[2023-10-17 20:00] VITALS: BP 112/75; PULSE 89; RESP 18; TEMP 97.8; O2SAT 95
[2023-10-18] MEDS: LORazepam 1 MG tablet PO PRN ×2 (00:53→20:13)
[2023-10-18 07:00] VITALS: RESP 14; O2SAT 96
[2023-10-18] MEDS: gabapentin 100mg capsule PO SCH ×3 (07:46→20:13)
[2023-10-18] MEDS: aripiprazole 5mg tablet PO SCH (07:46)
[2023-10-18] MEDS: atorvastatin 20mg tablet PO SCH (07:46)
[2023-10-18] MEDS: metoprolol tartrate 25mg tablet PO SCH ×2 (07:46→20:13)
[2023-10-18] MEDS: linagliptin 5mg tablet PO SCH (07:46)
[2023-10-18 08:00] VITALS: BP 100/70; PULSE 72; RESP 14; TEMP 97.7; O2SAT 96
[2023-10-18 19:00] VITALS: RESP 14; O2SAT 95
[2023-10-18 20:00] VITALS: BP 114/74; PULSE 85; RESP 14; TEMP 98; O2SAT 95
[2023-10-18] MEDS ORDERED: ARIPIPRAZOLE 10 MG TABLET PO SCH (20:01)
[2023-10-18] MEDS ORDERED: ARIPIPRAZOLE 10 MG TABLET PO ONE (20:10)
[2023-10-19 07:00] VITALS: RESP 16; O2SAT 96
[2023-10-19 08:00] VITALS: BP 110/67; PULSE 82; RESP 16; TEMP 98.4; O2SAT 96
[2023-10-19] MEDS: linagliptin 5mg tablet PO SCH (08:40)
[2023-10-19] MEDS: gabapentin 100mg capsule PO SCH ×3 (08:40→20:05)
[2023-10-19] MEDS: metoprolol tartrate 25mg tablet PO SCH ×2 (08:41→20:05)
[2023-10-19] MEDS: atorvastatin 20mg tablet PO SCH (08:41)
[2023-10-19] MEDS: ARIPIPRAZOLE 10 MG TABLET PO SCH ×2 (08:41→20:05)
[2023-10-19 19:00] VITALS: RESP 18; O2SAT 98
[2023-10-19 19:18] VITALS: BP 129/77; PULSE 84; RESP 18; TEMP 97.5; O2SAT 98
[2023-10-19] MEDS: LORazepam 1 MG tablet PO PRN (20:06)
[2023-10-20] MEDS: LORazepam 1 MG tablet PO PRN ×2 (01:24→20:39)
[2023-10-20 07:00] VITALS: RESP 16; O2SAT 97
[2023-10-20 08:00] VITALS: BP 114/76; PULSE 87; RESP 16; TEMP 98.4; O2SAT 97
[2023-10-20] MEDS: linagliptin 5mg tablet PO SCH (08:00)
[2023-10-20] MEDS: atorvastatin 20mg tablet PO SCH (08:00)
[2023-10-20] MEDS: ARIPIPRAZOLE 10 MG TABLET PO SCH ×2 (08:00→20:38)
[2023-10-20] MEDS: metoprolol tartrate 25mg tablet PO SCH ×2 (08:01→20:39)
[2023-10-20] MEDS: gabapentin 100mg capsule PO SCH ×3 (08:01→20:38)
[2023-10-20 19:00] VITALS: RESP 16; O2SAT 96
[2023-10-20 20:00] VITALS: BP 110/71; PULSE 82; RESP 16; TEMP 98.2; O2SAT 96
[2023-10-21] MEDS: LORazepam 1 MG tablet PO PRN ×3 (02:36→23:56)
[2023-10-21 07:00] VITALS: RESP 16; O2SAT 98
[2023-10-21] MEDS: linagliptin 5mg tablet PO SCH (07:43)
[2023-10-21] MEDS: atorvastatin 20mg tablet PO SCH (07:43)
[2023-10-21] MEDS: ARIPIPRAZOLE 10 MG TABLET PO SCH ×2 (07:43→20:26)
[2023-10-21] MEDS: gabapentin 100mg capsule PO SCH ×3 (07:43→20:26)
[2023-10-21] MEDS: metoprolol tartrate 25mg tablet PO SCH ×2 (07:43→20:28)
[2023-10-21 08:00] VITALS: BP 109/73; PULSE 82; RESP 16; TEMP 97.5; O2SAT 98
[2023-10-21 19:00] VITALS: RESP 16; O2SAT 96
[2023-10-21 19:08] VITALS: BP 124/77; PULSE 92; RESP 16; TEMP 98.1; O2SAT 96
[2023-10-22 07:00] VITALS: RESP 16; O2SAT 96
[2023-10-22 08:00] VITALS: BP 121/83; PULSE 92; RESP 16; TEMP 97.4; O2SAT 96
[2023-10-22] MEDS: atorvastatin 20mg tablet PO SCH (08:48)
[2023-10-22] MEDS: ARIPIPRAZOLE 10 MG TABLET PO SCH ×2 (08:48→20:24)
[2023-10-22] MEDS: metoprolol tartrate 25mg tablet PO SCH ×2 (08:49→20:25)
[2023-10-22] MEDS: gabapentin 100mg capsule PO SCH ×3 (08:49→20:25)
[2023-10-22] MEDS: linagliptin 5mg tablet PO SCH (08:49)
[2023-10-22 09:03] VITALS: PULSE 88
[2023-10-22 19:00] VITALS: RESP 16; O2SAT 97
[2023-10-22 20:00] VITALS: BP 123/74; PULSE 87; RESP 16; TEMP 98.7; O2SAT 97
[2023-10-22] MEDS: LORazepam 1 MG tablet PO PRN (20:25)
[2023-10-23] MEDS: LORazepam 1 MG tablet PO PRN ×2 (01:48→20:13)
[2023-10-23 07:00] VITALS: RESP 12; O2SAT 98
[2023-10-23 08:00] VITALS: BP 125/70; PULSE 88; RESP 12; TEMP 97.7; O2SAT 98
[2023-10-23] MEDS: metoprolol tartrate 25mg tablet PO SCH ×2 (08:38→20:13)
[2023-10-23] MEDS: atorvastatin 20mg tablet PO SCH (08:39)
[2023-10-23] MEDS: gabapentin 100mg capsule PO SCH ×3 (08:39→20:12)
[2023-10-23] MEDS: ARIPIPRAZOLE 10 MG TABLET PO SCH ×2 (08:39→20:13)
[2023-10-23] MEDS: linagliptin 5mg tablet PO SCH (08:39)
[2023-10-23 19:44] VITALS: BP 116/80; PULSE 96; RESP 18; TEMP 97.9; O2SAT 97
[2023-10-23] MEDS: traZODone 50mg tablet PO PRN (20:13)
[2023-10-24] MEDS: LORazepam 1 MG tablet PO PRN ×2 (02:34→21:06)
[2023-10-24 06:57] VITALS: RESP 12; O2SAT 98
[2023-10-24] MEDS: linagliptin 5mg tablet PO SCH (07:55)
[2023-10-24] MEDS: gabapentin 100mg capsule PO SCH ×3 (07:55→20:59)
[2023-10-24] MEDS: atorvastatin 20mg tablet PO SCH (07:55)
[2023-10-24] MEDS: ARIPIPRAZOLE 10 MG TABLET PO SCH ×2 (07:55→20:59)
[2023-10-24] MEDS: metoprolol tartrate 25mg tablet PO SCH ×2 (07:57→21:00)
[2023-10-24 08:00] VITALS: BP 112/74; PULSE 85; RESP 12; TEMP 97.5; O2SAT 97
[2023-10-24 10:26] VITALS: BP 112/74; PULSE 85; RESP 14; TEMP 97.5; O2SAT 97
[2023-10-24 19:00] VITALS: RESP 16; O2SAT 97
[2023-10-24 20:00] VITALS: BP 126/74; PULSE 85; RESP 16; TEMP 97.9; O2SAT 97
[2023-10-25] MEDS: LORazepam 1 MG tablet PO PRN ×2 (01:59→20:47)
[2023-10-25 06:44] VITALS: RESP 12; O2SAT 98
[2023-10-25 08:00] VITALS: BP 117/73; PULSE 87; RESP 16; TEMP 97.8; O2SAT 95
[2023-10-25] MEDS: ARIPIPRAZOLE 10 MG TABLET PO SCH ×2 (08:30→20:47)
[2023-10-25] MEDS: atorvastatin 20mg tablet PO SCH (08:30)
[2023-10-25] MEDS: linagliptin 5mg tablet PO SCH (08:30)
[2023-10-25] MEDS: gabapentin 100mg capsule PO SCH ×3 (08:30→20:47)
[2023-10-25] MEDS: metoprolol tartrate 25mg tablet PO SCH ×2 (08:31→20:47)
[2023-10-25 19:00] VITALS: RESP 18; O2SAT 96
[2023-10-25 20:00] VITALS: BP 125/79; PULSE 88; RESP 18; TEMP 97.5; O2SAT 96
[2023-10-26] MEDS: LORazepam 1 MG tablet PO PRN ×2 (02:37→20:59)
[2023-10-26] MEDS: linagliptin 5mg tablet PO SCH (07:46)
[2023-10-26] MEDS: ARIPIPRAZOLE 10 MG TABLET PO SCH ×2 (07:46→20:58)
[2023-10-26] MEDS: atorvastatin 20mg tablet PO SCH (07:46)
[2023-10-26] MEDS: gabapentin 100mg capsule PO SCH ×3 (07:46→20:59)
[2023-10-26] MEDS: metoprolol tartrate 25mg tablet PO SCH ×2 (07:47→20:59)
[2023-10-26 07:51] VITALS: RESP 12; O2SAT 98
[2023-10-26 08:04] VITALS: BP 112/72; PULSE 75; RESP 16; TEMP 97.8; O2SAT 97
[2023-10-26] MEDS ORDERED: temazepam 15mg capsule PO PRN (17:30)
[2023-10-26 19:00] VITALS: RESP 16; O2SAT 97
[2023-10-26 20:00] VITALS: BP 119/75; PULSE 86; RESP 16; TEMP 97.8; O2SAT 97
[2023-10-27] MEDS: LORazepam 1 MG tablet PO PRN ×2 (00:54→20:21)
[2023-10-27 07:00] VITALS: RESP 16; O2SAT 98
[2023-10-27 07:04] VITALS: BP 124/77; PULSE 79; RESP 16; TEMP 97.9; O2SAT 98
[2023-10-27] MEDS: linagliptin 5mg tablet PO SCH (07:10)
[2023-10-27] MEDS: metoprolol tartrate 25mg tablet PO SCH ×2 (07:10→20:22)
[2023-10-27] MEDS: ARIPIPRAZOLE 10 MG TABLET PO SCH ×2 (07:11→20:21)
[2023-10-27] MEDS: gabapentin 100mg capsule PO SCH ×3 (07:11→20:21)
[2023-10-27] MEDS: atorvastatin 20mg tablet PO SCH (07:11)
[2023-10-27 19:00] VITALS: RESP 16; O2SAT 98
[2023-10-27 20:00] VITALS: BP 119/79; PULSE 85; RESP 16; TEMP 98; O2SAT 98
[2023-10-28] MEDS: LORazepam 1 MG tablet PO PRN ×2 (02:53→20:34)
[2023-10-28 07:00] VITALS: RESP 12; O2SAT 100
[2023-10-28 08:00] VITALS: BP 113/77; PULSE 82; RESP 12; TEMP 97.6; O2SAT 100
[2023-10-28] MEDS: linagliptin 5mg tablet PO SCH (08:19)
[2023-10-28] MEDS: gabapentin 100mg capsule PO SCH ×3 (08:19→20:34)
[2023-10-28] MEDS: ARIPIPRAZOLE 10 MG TABLET PO SCH ×2 (08:19→20:34)
[2023-10-28] MEDS: metoprolol tartrate 25mg tablet PO SCH ×2 (08:19→20:34)
[2023-10-28] MEDS: atorvastatin 20mg tablet PO SCH (08:19)
[2023-10-28 19:00] VITALS: RESP 18; O2SAT 96
[2023-10-28 20:00] VITALS: BP 129/81; PULSE 101; RESP 18; TEMP 97.2; O2SAT 96
[2023-10-29] MEDS: LORazepam 1 MG tablet PO PRN ×2 (01:27→20:59)
[2023-10-29 07:00] VITALS: RESP 18; O2SAT 97
[2023-10-29] MEDS: metoprolol tartrate 25mg tablet PO SCH ×2 (07:48→21:00)
[2023-10-29] MEDS: ARIPIPRAZOLE 10 MG TABLET PO SCH ×2 (07:49→20:59)
[2023-10-29] MEDS: gabapentin 100mg capsule PO SCH ×3 (07:49→20:58)
[2023-10-29] MEDS: linagliptin 5mg tablet PO SCH (07:49)
[2023-10-29] MEDS: atorvastatin 20mg tablet PO SCH (07:49)
[2023-10-29 08:00] VITALS: BP 113/69; PULSE 80; RESP 18; TEMP 97.6; O2SAT 97
[2023-10-29 19:00] VITALS: RESP 18; O2SAT 95
[2023-10-29 20:00] VITALS: BP 118/71; PULSE 80; RESP 18; TEMP 97.6; O2SAT 95
[2023-10-29] MEDS ORDERED: temazepam 15mg capsule PO SCH (21:00)
[2023-10-30] MEDS: LORazepam 1 MG tablet PO PRN ×2 (01:17→20:35)
[2023-10-30 07:00] VITALS: RESP 12; O2SAT 98
[2023-10-30] MEDS: ARIPIPRAZOLE 10 MG TABLET PO SCH ×2 (07:07→20:32)
[2023-10-30] MEDS: gabapentin 100mg capsule PO SCH ×3 (07:07→20:33)
[2023-10-30] MEDS: atorvastatin 20mg tablet PO SCH (07:07)
[2023-10-30] MEDS: linagliptin 5mg tablet PO SCH (07:07)
[2023-10-30] MEDS: metoprolol tartrate 25mg tablet PO SCH ×2 (07:10→20:33)
[2023-10-30 08:00] VITALS: BP 112/73; PULSE 80; RESP 12; TEMP 97.9; O2SAT 98
[2023-10-30 19:30] VITALS: BP 127/73; PULSE 92; RESP 16; TEMP 98.3; O2SAT 97
[2023-10-30] MEDS: temazepam 15mg capsule PO SCH (20:34)
[2023-10-31] MEDS: metoprolol tartrate 25mg tablet PO SCH ×2 (07:43→20:17)
[2023-10-31] MEDS: gabapentin 100mg capsule PO SCH ×3 (07:43→20:17)
[2023-10-31] MEDS: linagliptin 5mg tablet PO SCH (07:43)
[2023-10-31] MEDS: atorvastatin 20mg tablet PO SCH (07:43)
[2023-10-31] MEDS: ARIPIPRAZOLE 10 MG TABLET PO SCH ×2 (07:44→20:16)
[2023-10-31 08:00] VITALS: BP 117/80; PULSE 82; RESP 12; TEMP 96.9; O2SAT 97
[2023-10-31 19:30] VITALS: BP 118/81; PULSE 94; RESP 14; TEMP 98.4; O2SAT 97
[2023-10-31] MEDS: temazepam 15mg capsule PO SCH (20:16)
[2023-10-31] MEDS: LORazepam 1 MG tablet PO PRN (20:16)
[2023-11-01 07:00] VITALS: RESP 16; O2SAT 96
[2023-11-01 08:00] VITALS: BP 112/75; PULSE 85; RESP 16; TEMP 98.7; O2SAT 96
[2023-11-01] MEDS: ARIPIPRAZOLE 10 MG TABLET PO SCH ×2 (08:09→20:29)
[2023-11-01] MEDS: gabapentin 100mg capsule PO SCH ×3 (08:10→20:29)
[2023-11-01] MEDS: linagliptin 5mg tablet PO SCH (08:10)
[2023-11-01] MEDS: metoprolol tartrate 25mg tablet PO SCH ×2 (08:10→20:30)
[2023-11-01] MEDS: atorvastatin 20mg tablet PO SCH (08:10)
[2023-11-01 19:00] VITALS: RESP 18; O2SAT 98
[2023-11-01 19:40] VITALS: BP 119/80; PULSE 87; RESP 18; TEMP 97.5; O2SAT 99
[2023-11-01] MEDS: temazepam 15mg capsule PO SCH (20:29)
[2023-11-01] MEDS: LORazepam 1 MG tablet PO PRN (20:30)
[2023-11-02] MEDS: LORazepam 1 MG tablet PO PRN ×2 (04:08→20:08)
[2023-11-02 07:00] VITALS: RESP 12; O2SAT 99
[2023-11-02 07:17] VITALS: BP 130/79; PULSE 83; RESP 12; TEMP 97.7; O2SAT 99
[2023-11-02] MEDS: gabapentin 100mg capsule PO SCH ×3 (07:52→20:07)
[2023-11-02] MEDS: atorvastatin 20mg tablet PO SCH (07:53)
[2023-11-02] MEDS: metoprolol tartrate 25mg tablet PO SCH ×2 (07:53→20:00)
[2023-11-02] MEDS: ARIPIPRAZOLE 10 MG TABLET PO SCH ×2 (07:54→20:07)
[2023-11-02] MEDS: linagliptin 5mg tablet PO SCH (07:54)
[2023-11-02 19:00] VITALS: RESP 16; O2SAT 97
[2023-11-02 20:00] VITALS: BP 106/70; PULSE 87; RESP 16; TEMP 97.7; O2SAT 97
[2023-11-02] MEDS: temazepam 15mg capsule PO SCH (20:07)
[2023-11-03 07:00] VITALS: RESP 14; O2SAT 98
[2023-11-03 07:15] VITALS: BP 137/77; PULSE 101; RESP 14; TEMP 97.7; O2SAT 98
[2023-11-03] MEDS: linagliptin 5mg tablet PO SCH (07:15)
[2023-11-03] MEDS: gabapentin 100mg capsule PO SCH ×3 (07:15→20:22)
[2023-11-03] MEDS: ARIPIPRAZOLE 10 MG TABLET PO SCH ×2 (07:16→20:21)
[2023-11-03] MEDS: metoprolol tartrate 25mg tablet PO SCH ×2 (07:16→20:22)
[2023-11-03] MEDS: atorvastatin 20mg tablet PO SCH (07:16)
[2023-11-03 19:00] VITALS: RESP 18; O2SAT 97
[2023-11-03 19:17] VITALS: BP 158/91; PULSE 118; RESP 18; TEMP 97.3; O2SAT 97
[2023-11-03] MEDS: temazepam 15mg capsule PO SCH (20:23)
[2023-11-03 22:02] VITALS: PULSE 100
[2023-11-04] MEDS: LORazepam 1 MG tablet PO PRN (01:10)
[2023-11-04 07:00] VITALS: RESP 17; O2SAT 97
[2023-11-04] MEDS: ARIPIPRAZOLE 10 MG TABLET PO SCH ×2 (07:22→20:53)
[2023-11-04] MEDS: gabapentin 100mg capsule PO SCH ×3 (07:22→20:54)
[2023-11-04] MEDS: linagliptin 5mg tablet PO SCH (07:22)
[2023-11-04] MEDS: metoprolol tartrate 25mg tablet PO SCH ×2 (07:22→20:53)
[2023-11-04] MEDS: atorvastatin 20mg tablet PO SCH (07:22)
[2023-11-04 08:00] VITALS: BP 157/93; PULSE 106; RESP 17; TEMP 98.4; O2SAT 97
[2023-11-04 19:00] VITALS: RESP 18; O2SAT 97
[2023-11-04 19:14] VITALS: BP 138/81; PULSE 108; RESP 18; TEMP 97.6; O2SAT 97
[2023-11-04] MEDS: temazepam 15mg capsule PO SCH (20:54)
[2023-11-05 07:00] VITALS: BP 121/79; PULSE 81; RESP 16; TEMP 97.2; O2SAT 97
[2023-11-05] MEDS: atorvastatin 20mg tablet PO SCH (07:05)
[2023-11-05] MEDS: metoprolol tartrate 25mg tablet PO SCH ×2 (07:06→20:06)
[2023-11-05] MEDS: gabapentin 100mg capsule PO SCH ×3 (07:06→20:05)
[2023-11-05] MEDS: ARIPIPRAZOLE 10 MG TABLET PO SCH ×2 (07:06→20:05)
[2023-11-05] MEDS: linagliptin 5mg tablet PO SCH (07:06)
[2023-11-05 08:00] VITALS: BP 121/79; PULSE 81; RESP 16; TEMP 97.2; O2SAT 97
[2023-11-05 19:24] VITALS: BP 119/77; PULSE 85; RESP 18; TEMP 97.9; O2SAT 97
[2023-11-05 19:25] VITALS: BP 119/77; PULSE 85; RESP 18; TEMP 97.9; O2SAT 97
[2023-11-05] MEDS: temazepam 15mg capsule PO SCH (20:04)
[2023-11-06] MEDS: LORazepam 1 MG tablet PO PRN (03:32)
[2023-11-06 07:00] VITALS: RESP 16; O2SAT 97
[2023-11-06 08:00] VITALS: BP 106/72; PULSE 89; RESP 16; TEMP 97.5; O2SAT 97
[2023-11-06] MEDS: metoprolol tartrate 25mg tablet PO SCH ×2 (08:14→20:21)
[2023-11-06] MEDS: gabapentin 100mg capsule PO SCH ×3 (08:14→20:20)
[2023-11-06] MEDS: ARIPIPRAZOLE 10 MG TABLET PO SCH ×2 (08:14→20:20)
[2023-11-06] MEDS: linagliptin 5mg tablet PO SCH (08:14)
[2023-11-06] MEDS: atorvastatin 20mg tablet PO SCH (08:14)
[2023-11-06 19:00] VITALS: BP 122/72; PULSE 87; RESP 16; TEMP 98.4; O2SAT 96
[2023-11-06] MEDS: temazepam 15mg capsule PO SCH (20:20)
[2023-11-07] MEDS: LORazepam 1 MG tablet PO PRN (01:16)
[2023-11-07 07:00] VITALS: RESP 16; O2SAT 95
[2023-11-07] MEDS: gabapentin 100mg capsule PO SCH ×3 (07:54→20:39)
[2023-11-07] MEDS: linagliptin 5mg tablet PO SCH (07:55)
[2023-11-07] MEDS: metoprolol tartrate 25mg tablet PO SCH ×2 (07:55→20:38)
[2023-11-07] MEDS: atorvastatin 20mg tablet PO SCH (07:55)
[2023-11-07] MEDS: ARIPIPRAZOLE 10 MG TABLET PO SCH ×2 (07:55→20:38)
[2023-11-07 08:00] VITALS: BP 110/72; PULSE 79; RESP 16; TEMP 97.6; O2SAT 99
[2023-11-07 19:00] VITALS: BP 130/87; PULSE 95; RESP 19; TEMP 97; O2SAT 100
[2023-11-07] MEDS ORDERED: hydrocortisone 1% cream 28gm TP SCH (20:00)
[2023-11-07] MEDS: temazepam 15mg capsule PO SCH (20:37)
[2023-11-08] MEDS: LORazepam 1 MG tablet PO PRN (00:59)
[2023-11-08 07:00] VITALS: BP 126/68; PULSE 83; RESP 16; TEMP 98.1; O2SAT 98
[2023-11-08] MEDS: gabapentin 100mg capsule PO SCH ×3 (07:46→20:09)
[2023-11-08] MEDS: linagliptin 5mg tablet PO SCH (07:46)
[2023-11-08] MEDS: ARIPIPRAZOLE 10 MG TABLET PO SCH ×2 (07:46→20:09)
[2023-11-08] MEDS: metoprolol tartrate 25mg tablet PO SCH ×2 (07:47→20:10)
[2023-11-08] MEDS: atorvastatin 20mg tablet PO SCH (07:47)
[2023-11-08 19:30] VITALS: BP 136/87; PULSE 101; RESP 18; TEMP 97.5; O2SAT 95
[2023-11-08] MEDS: temazepam 15mg capsule PO SCH (20:09)
[2023-11-09] MEDS: LORazepam 1 MG tablet PO PRN ×2 (01:13→14:17)
[2023-11-09] MEDS: gabapentin 100mg capsule PO SCH ×3 (07:18→20:06)
[2023-11-09] MEDS: metoprolol tartrate 25mg tablet PO SCH ×2 (07:18→20:06)
[2023-11-09] MEDS: ARIPIPRAZOLE 10 MG TABLET PO SCH ×2 (07:18→20:06)
[2023-11-09] MEDS: atorvastatin 20mg tablet PO SCH (07:18)
[2023-11-09] MEDS: linagliptin 5mg tablet PO SCH (07:18)
[2023-11-09 07:30] VITALS: RESP 16; O2SAT 96
[2023-11-09 08:00] VITALS: BP 123/75; PULSE 92; RESP 17; TEMP 98.4; O2SAT 96
[2023-11-09 19:49] VITALS: RESP 18; O2SAT 98
[2023-11-09 19:52] VITALS: BP 150/87; PULSE 103; RESP 18; TEMP 98.1; O2SAT 98
[2023-11-09] MEDS: temazepam 15mg capsule PO SCH (20:06)
[2023-11-10] MEDS: LORazepam 1 MG tablet PO PRN ×2 (00:11→16:16)
[2023-11-10] MEDS: traZODone 50mg tablet PO SCH ×2 (00:25→22:28)
[2023-11-10 07:00] VITALS: RESP 14; O2SAT 97
[2023-11-10] MEDS: gabapentin 100mg capsule PO SCH ×3 (07:31→22:27)
[2023-11-10] MEDS: linagliptin 5mg tablet PO SCH (07:31)
[2023-11-10] MEDS: ARIPIPRAZOLE 10 MG TABLET PO SCH ×2 (07:31→22:27)
[2023-11-10] MEDS: atorvastatin 20mg tablet PO SCH (07:32)
[2023-11-10] MEDS: metoprolol tartrate 25mg tablet PO SCH ×2 (07:34→22:27)
[2023-11-10 08:00] VITALS: BP 124/84; PULSE 91; RESP 14; TEMP 98.6; O2SAT 97
[2023-11-10 19:37] VITALS: BP 126/76; PULSE 91; RESP 16; TEMP 98.1; O2SAT 96
[2023-11-10 19:38] VITALS: RESP 16; O2SAT 96
[2023-11-10] MEDS: temazepam 15mg capsule PO SCH (22:27)
[2023-11-11] MEDS: LORazepam 1 MG tablet PO PRN (01:59)
[2023-11-11 07:00] VITALS: RESP 16; O2SAT 95
[2023-11-11] MEDS: atorvastatin 20mg tablet PO SCH (07:21)
[2023-11-11] MEDS: gabapentin 100mg capsule PO SCH ×3 (07:21→20:25)
[2023-11-11] MEDS: metoprolol tartrate 25mg tablet PO SCH ×2 (07:21→20:26)
[2023-11-11] MEDS: linagliptin 5mg tablet PO SCH (07:22)
[2023-11-11] MEDS: ARIPIPRAZOLE 10 MG TABLET PO SCH ×2 (07:22→20:25)
[2023-11-11 08:00] VITALS: BP 133/77; PULSE 90; RESP 16; TEMP 98.1; O2SAT 95
[2023-11-11 19:00] VITALS: RESP 16; O2SAT 96
[2023-11-11 19:10] VITALS: BP 123/86; PULSE 100; RESP 16; TEMP 98.9; O2SAT 96
[2023-11-11] MEDS: traZODone 50mg tablet PO SCH (20:25)
[2023-11-11] MEDS: temazepam 15mg capsule PO SCH (20:25)
[2023-11-12] MEDS: LORazepam 1 MG tablet PO PRN ×2 (00:32→07:26)
[2023-11-12 07:00] VITALS: RESP 16; O2SAT 97
[2023-11-12] MEDS: metoprolol tartrate 25mg tablet PO SCH ×2 (07:25→20:25)
[2023-11-12] MEDS: atorvastatin 20mg tablet PO SCH (07:25)
[2023-11-12] MEDS: ARIPIPRAZOLE 10 MG TABLET PO SCH ×2 (07:25→20:24)
[2023-11-12] MEDS: linagliptin 5mg tablet PO SCH (07:26)
[2023-11-12] MEDS: gabapentin 100mg capsule PO SCH ×3 (07:27→20:24)
[2023-11-12 07:39] VITALS: BP 136/79; PULSE 86; RESP 16; TEMP 98.4; O2SAT 97
[2023-11-12 19:00] VITALS: RESP 16; O2SAT 95
[2023-11-12 19:35] VITALS: BP 128/77; PULSE 92; RESP 16; TEMP 98.9; O2SAT 95
[2023-11-12] MEDS: traZODone 50mg tablet PO SCH (20:24)
[2023-11-12] MEDS: temazepam 15mg capsule PO SCH (20:24)
[2023-11-13] MEDS: LORazepam 1 MG tablet PO PRN (00:27)
[2023-11-13 06:55] VITALS: RESP 16; O2SAT 97
[2023-11-13 08:00] VITALS: BP 129/90; PULSE 76; RESP 1; TEMP 97.9; O2SAT 97
[2023-11-13] MEDS: linagliptin 5mg tablet PO SCH (08:16)
[2023-11-13] MEDS: atorvastatin 20mg tablet PO SCH (08:16)
[2023-11-13] MEDS: aripiprazole 5mg tablet PO SCH (08:16)
[2023-11-13] MEDS: metoprolol tartrate 25mg tablet PO SCH ×2 (08:17→20:14)
[2023-11-13] MEDS: gabapentin 100mg capsule PO SCH ×3 (08:17→20:14)
[2023-11-13 19:00] VITALS: RESP 20; O2SAT 95
[2023-11-13 20:00] VITALS: BP 137/83; PULSE 93; RESP 20; TEMP 97.7; O2SAT 95
[2023-11-13] MEDS: traZODone 50mg tablet PO SCH (20:14)
[2023-11-13] MEDS: temazepam 15mg capsule PO SCH (20:14)
[2023-11-13] MEDS: ARIPIPRAZOLE 10 MG TABLET PO SCH (20:15)
[2023-11-14] MEDS: LORazepam 1 MG tablet PO PRN ×2 (00:44→15:54)
[2023-11-14] MEDS ORDERED: traZODone 50mg tablet PO ONE (00:45)
[2023-11-14 08:00] VITALS: BP 124/82; PULSE 102; RESP 16; TEMP 97.9; O2SAT 96
[2023-11-14] MEDS: atorvastatin 20mg tablet PO SCH (08:11)
[2023-11-14] MEDS: linagliptin 5mg tablet PO SCH (08:11)
[2023-11-14] MEDS: gabapentin 100mg capsule PO SCH ×3 (08:11→20:21)
[2023-11-14] MEDS: aripiprazole 5mg tablet PO SCH (08:12)
[2023-11-14] MEDS: metoprolol tartrate 25mg tablet PO SCH ×2 (08:12→20:22)
[2023-11-14 19:00] VITALS: BP 124/82; PULSE 85; RESP 16; TEMP 98.2; O2SAT 97
[2023-11-14] MEDS: traZODone 50mg tablet PO SCH (20:21)
[2023-11-14] MEDS: ARIPIPRAZOLE 10 MG TABLET PO SCH (20:21)
[2023-11-14] MEDS: temazepam 15mg capsule PO SCH (20:21)
[2023-11-15] MEDS ORDERED: traZODone 50mg tablet PO ONE (01:25)
[2023-11-15] MEDS: LORazepam 1 MG tablet PO PRN (01:36)
[2023-11-15 07:00] VITALS: RESP 16; O2SAT 95
[2023-11-15] MEDS: atorvastatin 20mg tablet PO SCH (07:29)
[2023-11-15] MEDS: linagliptin 5mg tablet PO SCH (07:29)
[2023-11-15] MEDS: gabapentin 100mg capsule PO SCH ×3 (07:29→20:54)
[2023-11-15] MEDS: aripiprazole 5mg tablet PO SCH (07:29)
[2023-11-15] MEDS: metoprolol tartrate 25mg tablet PO SCH ×2 (07:29→20:54)
[2023-11-15 08:00] VITALS: BP 146/74; PULSE 85; RESP 14; TEMP 98.1; O2SAT 95
[2023-11-15 19:00] VITALS: BP 123/78; PULSE 90; RESP 16; TEMP 98.1; O2SAT 96
[2023-11-15] MEDS: temazepam 15mg capsule PO SCH (20:53)
[2023-11-15] MEDS: traZODone 50mg tablet PO SCH (20:54)
[2023-11-15] MEDS: ARIPIPRAZOLE 10 MG TABLET PO SCH (20:55)
[2023-11-16 07:00] VITALS: RESP 14; O2SAT 96
[2023-11-16] MEDS: linagliptin 5mg tablet PO SCH (07:34)
[2023-11-16] MEDS: aripiprazole 5mg tablet PO SCH (07:34)
[2023-11-16] MEDS: atorvastatin 20mg tablet PO SCH (07:34)
[2023-11-16] MEDS: gabapentin 100mg capsule PO SCH ×3 (07:34→20:19)
[2023-11-16] MEDS: metoprolol tartrate 25mg tablet PO SCH ×2 (07:34→20:20)
[2023-11-16 08:00] VITALS: BP 122/69; PULSE 82; RESP 14; TEMP 98.2; O2SAT 96
[2023-11-16 19:16] VITALS: BP 139/87; PULSE 88; RESP 18; TEMP 98.5; O2SAT 97
[2023-11-16] MEDS: traZODone 50mg tablet PO SCH (20:19)
[2023-11-16] MEDS: ARIPIPRAZOLE 10 MG TABLET PO SCH (20:19)
[2023-11-16] MEDS: temazepam 15mg capsule PO SCH (20:20)
[2023-11-16] MEDS: LORazepam 1 MG tablet PO PRN (20:20)
[2023-11-17 07:30] VITALS: BP 133/78; PULSE 85; RESP 16; TEMP 98.3; O2SAT 96
[2023-11-17] MEDS: linagliptin 5mg tablet PO SCH (08:19)
[2023-11-17] MEDS: gabapentin 100mg capsule PO SCH ×3 (08:19→19:57)
[2023-11-17] MEDS: atorvastatin 20mg tablet PO SCH (08:19)
[2023-11-17] MEDS: metoprolol tartrate 25mg tablet PO SCH ×2 (08:20→19:54)
[2023-11-17] MEDS: aripiprazole 5mg tablet PO SCH (08:21)
[2023-11-17 19:22] VITALS: BP 137/86; PULSE 98; RESP 18; TEMP 98.4; O2SAT 97
[2023-11-17 19:27] VITALS: RESP 18; O2SAT 97
[2023-11-17] MEDS: traZODone 50mg tablet PO SCH ×2 (19:56→21:18)
[2023-11-17] MEDS: LORazepam 1 MG tablet PO PRN (19:56)
[2023-11-17] MEDS: ARIPIPRAZOLE 10 MG TABLET PO SCH (19:56)
[2023-11-17] MEDS: temazepam 15mg capsule PO SCH (19:57)
[2023-11-17] MEDS ORDERED: traZODone 50mg tablet PO ONE (21:25)
[2023-11-18] MEDS: LORazepam 1 MG tablet PO PRN ×2 (02:21→20:29)
[2023-11-18 07:00] VITALS: RESP 14; O2SAT 97
[2023-11-18] MEDS: gabapentin 100mg capsule PO SCH ×3 (07:25→20:29)
[2023-11-18] MEDS: linagliptin 5mg tablet PO SCH (07:25)
[2023-11-18] MEDS: atorvastatin 20mg tablet PO SCH (07:25)
[2023-11-18] MEDS: aripiprazole 5mg tablet PO SCH (07:26)
[2023-11-18] MEDS: metoprolol tartrate 25mg tablet PO SCH ×2 (07:26→20:28)
[2023-11-18 08:00] VITALS: BP 120/68; PULSE 88; RESP 14; TEMP 97.2; O2SAT 97
[2023-11-18 08:34] LABS: BASOPHILS # (AUTO) 0.1 X10'3 (0-0.2); EOSINOPHILS # (AUTO) 0.4 X10'3 (0-0.9); EOSINOPHILS % (AUTO) 3.4 % (0-6); HEMATOCRIT 43.2 % (42.0-52.0); HEMOGLOBIN 14.5 g/dl (14.0-17.9); LYMPHOCYTES # (AUTO) 2.1 X10'3 (1.1-4.8); LYMPHOCYTES % (AUTO) 19.4 % (21-51); MEAN CORPUSCULAR HGB CONC 33.6 g/dL (33.0-36.5); MEAN CORPUSCULAR VOLUME 89.1 FL (78-98); MEAN PLATELET VOLUME 8.2 FL (7.4-10.4); MONOCYTES # (AUTO) 0.8 X10'3 (0-0.9); NEUTROPHILS # (AUTO) 7.2 X10'3 (1.8-7.7); NEUTROPHILS % (AUTO) 68.2 % (42-75); PLATELET COUNT 281 X10'3 (140-440); RED BLOOD COUNT 4.85 X10'6 (4.70-6.10); RED CELL DISTRIBUTION WIDTH 13.7 % (11.5-14.5); WHITE BLOOD COUNT 10.6 X10'3 (4.5-11.0)
[2023-11-18 08:52] LABS: ALANINE AMINOTRANSFERASE 51 U/L (12-78); ALBUMIN 3.4 G/DL (3.4-5.0); ALBUMIN/GLOBULIN RATIO 0.8 (1.1-1.5); ALKALINE PHOSPHATASE 99 IU/L (46-116); ANION GAP 10 (8-16); ASPARTATE AMINO TRANSFERASE 18 U/L (10-37); BILIRUBIN,TOTAL 0.4 MG/DL (0.1-1.0); BLOOD UREA NITROGEN 13 MG/DL (7-18); CALCIUM 9.3 MG/DL (8.5-10.1); CHLORIDE 100 MMOL/L (99-107); CREATININE 0.81 MG/DL (0.60-1.10); GLUCOSE 288 MG/DL (70-104); POTASSIUM 3.9 MMOL/L (3.5-5.1); SODIUM 136 MMOL/L (135-145); TOTAL CARBON DIOXIDE 26.3 MMOL/L (24-32); TOTAL PROTEIN 7.8 G/DL (6.4-8.2); eCRCL 92 ML/MIN; eGFR > 90 ML/MIN
[2023-11-18 19:27] VITALS: BP 130/76; PULSE 98; RESP 18; TEMP 97.9; O2SAT 94
[2023-11-18] MEDS: temazepam 15mg capsule PO SCH (20:29)
[2023-11-18] MEDS: traZODone 50mg tablet PO SCH (20:29)
[2023-11-18] MEDS: ARIPIPRAZOLE 10 MG TABLET PO SCH (20:29)
[2023-11-19 07:30] VITALS: BP 116/74; PULSE 78; RESP 16; TEMP 97.4; O2SAT 98
[2023-11-19] MEDS: aripiprazole 5mg tablet PO SCH (07:39)
[2023-11-19] MEDS: linagliptin 5mg tablet PO SCH (07:39)
[2023-11-19] MEDS: metoprolol tartrate 25mg tablet PO SCH ×2 (07:39→20:22)
[2023-11-19] MEDS: gabapentin 100mg capsule PO SCH ×3 (07:39→20:23)
[2023-11-19] MEDS: atorvastatin 20mg tablet PO SCH (07:39)
[2023-11-19 19:00] VITALS: BP 121/89; PULSE 108; RESP 18; TEMP 98; O2SAT 96
[2023-11-19] MEDS: ARIPIPRAZOLE 10 MG TABLET PO SCH (20:22)
[2023-11-19] MEDS: temazepam 15mg capsule PO SCH (20:23)
[2023-11-19] MEDS: traZODone 50mg tablet PO SCH (20:23)
[2023-11-19] MEDS: LORazepam 1 MG tablet PO PRN (20:23)
[2023-11-20] MEDS ORDERED: traZODone 50mg tablet PO ONE ×2 (00:05→22:50)
[2023-11-20 06:55] VITALS: RESP 16; O2SAT 98
[2023-11-20] MEDS: atorvastatin 20mg tablet PO SCH (07:26)
[2023-11-20] MEDS: gabapentin 100mg capsule PO SCH ×3 (07:26→21:00)
[2023-11-20] MEDS: aripiprazole 5mg tablet PO SCH (07:26)
[2023-11-20] MEDS: linagliptin 5mg tablet PO SCH (07:27)
[2023-11-20 08:00] VITALS: BP 98/50; PULSE 96; RESP 12; TEMP 98.4; O2SAT 96
[2023-11-20] MEDS: metoprolol tartrate 25mg tablet PO SCH ×2 (08:25→21:00)
[2023-11-20 19:30] VITALS: BP 152/79; PULSE 89; RESP 16; TEMP 97.4; O2SAT 97
[2023-11-20] MEDS: temazepam 15mg capsule PO SCH (20:58)
[2023-11-20] MEDS: ARIPIPRAZOLE 10 MG TABLET PO SCH (20:59)
[2023-11-20] MEDS: traZODone 50mg tablet PO SCH (20:59)
[2023-11-20] MEDS: LORazepam 1 MG tablet PO PRN (21:00)
[2023-11-21] MEDS: aripiprazole 5mg tablet PO SCH (07:10)
[2023-11-21] MEDS: atorvastatin 20mg tablet PO SCH (07:11)
[2023-11-21] MEDS: linagliptin 5mg tablet PO SCH (07:11)
[2023-11-21] MEDS: metoprolol tartrate 25mg tablet PO SCH ×2 (07:11→20:34)
[2023-11-21] MEDS: gabapentin 100mg capsule PO SCH ×3 (07:11→20:34)
[2023-11-21 07:14] VITALS: RESP 16; O2SAT 98
[2023-11-21 08:00] VITALS: BP 116/69; PULSE 90; RESP 16; TEMP 98.2; O2SAT 95
[2023-11-21] MEDS ORDERED: lithium carbonate 150mg capsule PO ONE (15:40)
[2023-11-21 19:30] VITALS: BP 135/77; PULSE 89; RESP 18; TEMP 97.7; O2SAT 98
[2023-11-21] MEDS: lithium carbonate 150mg capsule PO SCH (20:33)
[2023-11-21] MEDS: temazepam 15mg capsule PO SCH (20:33)
[2023-11-21] MEDS: traZODone 50mg tablet PO SCH (20:34)
[2023-11-21] MEDS: ARIPIPRAZOLE 10 MG TABLET PO SCH (20:34)
[2023-11-22] MEDS ORDERED: traZODone 50mg tablet PO ONE (02:45)
[2023-11-22 07:00] VITALS: RESP 16; O2SAT 96
[2023-11-22] MEDS: linagliptin 5mg tablet PO SCH (07:34)
[2023-11-22] MEDS: aripiprazole 5mg tablet PO SCH (07:34)
[2023-11-22] MEDS: metoprolol tartrate 25mg tablet PO SCH ×2 (07:35→21:28)
[2023-11-22] MEDS: gabapentin 100mg capsule PO SCH ×3 (07:35→21:28)
[2023-11-22] MEDS: lithium carbonate 150mg capsule PO SCH ×3 (07:35→21:37)
[2023-11-22] MEDS: atorvastatin 20mg tablet PO SCH (07:35)
[2023-11-22 08:00] VITALS: BP 124/71; PULSE 91; RESP 16; TEMP 97.7; O2SAT 96
[2023-11-22] MEDS ORDERED: lithium carbonate 150mg capsule PO ONE (15:00)
[2023-11-22 19:00] VITALS: RESP 18; O2SAT 96
[2023-11-22 20:00] VITALS: BP 141/72; PULSE 95; RESP 18; TEMP 97.8; O2SAT 96
[2023-11-22] MEDS: traZODone 50mg tablet PO SCH ×2 (21:27→22:33)
[2023-11-22] MEDS: temazepam 15mg capsule PO SCH (21:27)
[2023-11-22] MEDS: ARIPIPRAZOLE 10 MG TABLET PO SCH (21:28)
[2023-11-23] MEDS: LORazepam 1 MG tablet PO PRN ×2 (00:25→20:37)
[2023-11-23 07:00] VITALS: RESP 16; O2SAT 96
[2023-11-23] MEDS: atorvastatin 20mg tablet PO SCH (07:33)
[2023-11-23] MEDS: aripiprazole 5mg tablet PO SCH (07:33)
[2023-11-23] MEDS: metoprolol tartrate 25mg tablet PO SCH ×2 (07:34→20:36)
[2023-11-23] MEDS: linagliptin 5mg tablet PO SCH (07:34)
[2023-11-23] MEDS: gabapentin 100mg capsule PO SCH ×3 (07:35→20:37)
[2023-11-23 08:00] VITALS: BP 114/71; PULSE 78; RESP 16; TEMP 97.2; O2SAT 96
[2023-11-23] MEDS ORDERED: lithium carbonate 150mg capsule PO SCH (08:00)
[2023-11-23 19:00] VITALS: BP 146/76; PULSE 94; RESP 18; TEMP 98.4; O2SAT 96
[2023-11-23] MEDS: traZODone 50mg tablet PO SCH (20:36)
[2023-11-23] MEDS: ARIPIPRAZOLE 10 MG TABLET PO SCH (20:36)
[2023-11-23] MEDS: temazepam 15mg capsule PO SCH (20:37)
[2023-11-23] MEDS: lithium carbonate 150mg capsule PO SCH (20:37)
[2023-11-24 07:00] VITALS: RESP 16; O2SAT 97
[2023-11-24] MEDS: linagliptin 5mg tablet PO SCH (07:33)
[2023-11-24] MEDS: aripiprazole 5mg tablet PO SCH (07:33)
[2023-11-24] MEDS: atorvastatin 20mg tablet PO SCH (07:33)
[2023-11-24] MEDS: metoprolol tartrate 25mg tablet PO SCH ×2 (07:34→20:21)
[2023-11-24] MEDS: gabapentin 100mg capsule PO SCH ×3 (07:34→20:23)
[2023-11-24 08:00] VITALS: BP 132/79; PULSE 83; RESP 16; TEMP 97.4; O2SAT 97
[2023-11-24 19:00] VITALS: RESP 18; O2SAT 97
[2023-11-24 20:21] VITALS: BP 135/76; PULSE 87; RESP 18; TEMP 98; O2SAT 97
[2023-11-24] MEDS: ARIPIPRAZOLE 10 MG TABLET PO SCH (20:21)
[2023-11-24] MEDS: lithium carbonate 150mg capsule PO SCH (20:22)
[2023-11-24] MEDS: traZODone 50mg tablet PO SCH (20:22)
[2023-11-24] MEDS: temazepam 15mg capsule PO SCH (20:23)
[2023-11-24] MEDS ORDERED: traZODone 50mg tablet PO ONE (23:25)
[2023-11-25 07:20] VITALS: RESP 16; O2SAT 97
[2023-11-25] MEDS: linagliptin 5mg tablet PO SCH (07:49)
[2023-11-25] MEDS: metoprolol tartrate 25mg tablet PO SCH ×2 (07:50→21:13)
[2023-11-25] MEDS: aripiprazole 5mg tablet PO SCH (07:50)
[2023-11-25] MEDS: atorvastatin 20mg tablet PO SCH (07:50)
[2023-11-25] MEDS: gabapentin 100mg capsule PO SCH ×3 (07:50→21:15)
[2023-11-25 08:00] VITALS: BP 134/76; PULSE 88; RESP 16; TEMP 97.7; O2SAT 97
[2023-11-25 19:00] VITALS: RESP 16; O2SAT 98
[2023-11-25 20:00] VITALS: BP 122/62; PULSE 87; RESP 16; TEMP 98.4; O2SAT 98
[2023-11-25] MEDS: traZODone 50mg tablet PO SCH (21:14)
[2023-11-25] MEDS: ARIPIPRAZOLE 10 MG TABLET PO SCH (21:14)
[2023-11-25] MEDS: lithium carbonate 150mg capsule PO SCH (21:15)
[2023-11-25] MEDS: temazepam 15mg capsule PO SCH (21:15)
[2023-11-25] MEDS ORDERED: traZODone 50mg tablet PO ONE (23:30)
[2023-11-26 07:00] VITALS: BP 99/66; PULSE 74; RESP 16; TEMP 98.2; O2SAT 96
[2023-11-26] MEDS: aripiprazole 5mg tablet PO SCH (07:39)
[2023-11-26] MEDS: linagliptin 5mg tablet PO SCH (07:39)
[2023-11-26] MEDS: gabapentin 100mg capsule PO SCH ×3 (07:40→20:58)
[2023-11-26] MEDS: atorvastatin 20mg tablet PO SCH (07:40)
[2023-11-26] MEDS: metoprolol tartrate 25mg tablet PO SCH ×2 (08:00→20:56)
[2023-11-26 19:00] VITALS: RESP 20; O2SAT 96
[2023-11-26 19:21] VITALS: BP 129/72; PULSE 97; RESP 20; TEMP 97.9; O2SAT 96
[2023-11-26] MEDS: traZODone 50mg tablet PO SCH (20:57)
[2023-11-26] MEDS: ARIPIPRAZOLE 10 MG TABLET PO SCH (20:57)
[2023-11-26] MEDS: temazepam 15mg capsule PO SCH (20:58)
[2023-11-26] MEDS: lithium carbonate 150mg capsule PO SCH (20:58)
[2023-11-27] MEDS ORDERED: traZODone 50mg tablet PO ONE (00:35)
[2023-11-27 07:00] VITALS: RESP 16; O2SAT 96
[2023-11-27 08:00] VITALS: BP 123/71; PULSE 74; RESP 16; TEMP 97.6; O2SAT 96
[2023-11-27] MEDS: atorvastatin 20mg tablet PO SCH (08:05)
[2023-11-27] MEDS: linagliptin 5mg tablet PO SCH (08:05)
[2023-11-27] MEDS: gabapentin 100mg capsule PO SCH ×3 (08:05→20:23)
[2023-11-27] MEDS: aripiprazole 5mg tablet PO SCH (08:06)
[2023-11-27] MEDS: metoprolol tartrate 25mg tablet PO SCH ×2 (08:06→20:23)
[2023-11-27 19:00] VITALS: RESP 14; O2SAT 98
[2023-11-27 19:25] VITALS: BP 120/72; PULSE 87; RESP 14; TEMP 97.8; O2SAT 98
[2023-11-27] MEDS: traZODone 50mg tablet PO SCH ×2 (20:22→23:43)
[2023-11-27] MEDS: temazepam 15mg capsule PO SCH (20:22)
[2023-11-27] MEDS: ARIPIPRAZOLE 10 MG TABLET PO SCH (20:22)
[2023-11-27] MEDS: lithium carbonate 150mg capsule PO SCH (20:22)
[2023-11-28 07:00] VITALS: RESP 16; O2SAT 97
[2023-11-28] MEDS: linagliptin 5mg tablet PO SCH (07:24)
[2023-11-28] MEDS: aripiprazole 5mg tablet PO SCH (07:25)
[2023-11-28] MEDS: metoprolol tartrate 25mg tablet PO SCH ×2 (07:25→20:59)
[2023-11-28] MEDS: atorvastatin 20mg tablet PO SCH (07:25)
[2023-11-28] MEDS: gabapentin 100mg capsule PO SCH ×3 (07:25→20:58)
[2023-11-28 08:00] VITALS: BP 113/62; PULSE 75; RESP 16; TEMP 97.7; O2SAT 97
[2023-11-28 19:00] VITALS: RESP 17; O2SAT 95
[2023-11-28 20:00] VITALS: BP 118/69; PULSE 74; RESP 16; TEMP 97.7; O2SAT 95
[2023-11-28] MEDS: temazepam 15mg capsule PO SCH (20:57)
[2023-11-28] MEDS: traZODone 50mg tablet PO SCH ×2 (20:58→22:56)
[2023-11-28] MEDS: ARIPIPRAZOLE 10 MG TABLET PO SCH (20:58)
[2023-11-28] MEDS: lithium carbonate 150mg capsule PO SCH (20:58)
[2023-11-29 07:00] VITALS: BP 107/64; PULSE 79; RESP 16; TEMP 97.4; O2SAT 97
[2023-11-29] MEDS: gabapentin 100mg capsule PO SCH ×3 (07:15→20:38)
[2023-11-29] MEDS: linagliptin 5mg tablet PO SCH (07:15)
[2023-11-29] MEDS: aripiprazole 5mg tablet PO SCH (07:16)
[2023-11-29] MEDS: metoprolol tartrate 25mg tablet PO SCH ×2 (07:16→20:37)
[2023-11-29] MEDS: atorvastatin 20mg tablet PO SCH (07:16)
[2023-11-29 19:00] VITALS: RESP 14; O2SAT 94
[2023-11-29 20:00] VITALS: BP 122/74; PULSE 85; RESP 14; TEMP 98.4; O2SAT 94
[2023-11-29] MEDS: ARIPIPRAZOLE 10 MG TABLET PO SCH (20:38)
[2023-11-29] MEDS: traZODone 50mg tablet PO SCH ×2 (20:38→22:25)
[2023-11-29] MEDS: lithium carbonate 150mg capsule PO SCH (20:39)
[2023-11-29] MEDS: temazepam 15mg capsule PO SCH (20:39)
[2023-11-29] MEDS: clotrimazole topical cream 15gm tube TP SCH (20:45)
[2023-11-30 07:00] VITALS: RESP 16; O2SAT 97
[2023-11-30] MEDS: aripiprazole 5mg tablet PO SCH (07:22)
[2023-11-30] MEDS: atorvastatin 20mg tablet PO SCH (07:22)
[2023-11-30] MEDS: gabapentin 100mg capsule PO SCH ×2 (07:22→12:10)
[2023-11-30] MEDS: metoprolol tartrate 25mg tablet PO SCH (07:22)
[2023-11-30] MEDS: linagliptin 5mg tablet PO SCH (07:22)
[2023-11-30] MEDS: clotrimazole topical cream 15gm tube TP SCH (07:36)
[2023-11-30 08:00] VITALS: BP 118/68; PULSE 70; RESP 16; TEMP 97.3; O2SAT 97
[2023-11-30] MEDS ORDERED: LIT300C PO (16:04)
[2023-11-30] MEDS ORDERED: TRAZ-251 PO (16:04)
[2023-11-30] MEDS ORDERED: ATOR20TA66 PO (16:04)
[2023-11-30] MEDS ORDERED: GABA-530 PO (16:04)
[2023-11-30] MEDS ORDERED: TEMA15CA5 PO (16:04)
[2023-11-30] MEDS ORDERED: ARIP10TA15 PO (16:04)
[2023-11-30] MEDS ORDERED: METO25TA6 PO (16:04)
[2023-11-30] MEDS ORDERED: ALOG25TA PO (16:04)
== END 2023-11-30 17:25 | disposition home or self-care (01) | DRG 885 ==
LOC: ADULT MH 16:30
PROVIDERS: ADMIT Psychiatry & Neurology Psychiatry; ATTEND Psychiatry & Neurology Psychiatry
PROC: GZHZZZZ Group Psychotherapy (ICD-10-PCS; principal; 2023-09-06)
PROC: GZ51ZZZ Individual Psychotherapy, Behavioral (ICD-10-PCS; 2023-09-06)
DX: F20.9 Schizophrenia, unspecified (principal); Z59.00 Homelessness unspecified; F29 Unspecified psychosis not due to a substance or known physiological condition; F41.9 Anxiety disorder, unspecified; F17.210 Nicotine dependence, cigarettes, uncomplicated; E78.5 Hyperlipidemia, unspecified; E66.9 Obesity, unspecified; F32.A Depression, unspecified; I10 Essential (primary) hypertension; G47.00 Insomnia, unspecified; E11.40 Type 2 diabetes mellitus with diabetic neuropathy, unspecified; L21.9 Seborrheic dermatitis, unspecified; Z20.822 Contact with and (suspected) exposure to COVID-19; Z56.0 Unemployment, unspecified; Z68.37 Body mass index [BMI] 37.0-37.9, adult; Z79.899 Other long term (current) drug therapy; Z88.5 Allergy status to narcotic agent; Z91.148 Patient's other noncompliance with medication regimen for other reason; Z90.49 Acquired absence of other specified parts of digestive tract
CPT/HCPCS: 36415; 80053; 80061; 80178; 83036; 85025; 87081; 87811; A4649; A6209; A6212; A6223; A6250; A6258; A6402; A6446; A6449